=== PATIENT | female | born 1980 | race Two or more races ===

== ENCOUNTER → 2021-02-07 16:14 | Outpatient (BNVA) | payer MEDICARE, MEDICAID, SELFPAY | PROVIDERS: PCP Family Medicine; Visit Provider Student in an Organized Health Care Education/Training Program | DX: M79.7 Fibromyalgia (principal); M47.816 Spondylosis without myelopathy or radiculopathy, lumbar region | CPT/HCPCS: 99212 ==

== ENCOUNTER 2021-05-08 09:12 | Outpatient (REF) | payer MEDICARE, MEDICAID, SELFPAY ==
--- NOTE | ~2021-05-08 | MR_ITS ---
EXAMINATION: MR LUMBAR SPINE WITHOUT CONTRAST CLINICAL INFORMATION: Lower back pain with left leg numbness, pain, and weakness. COMPARISON: Multiple priors, most recent lumbar spine radiographs dated 08/05/2018. TECHNIQUE: MRI of the lumbar spine was obtained using routine sequences without contrast. FINDINGS: VERTEBRAL BODIES AND PARASPINAL STRUCTURES: Normal vertebral body alignment. The lumbar lordosis is maintained. No acute fracture or subluxation. No loss of vertebral body height. Loss of intervertebral disc height with disc desiccation at L3-L4 and L4-L5. No abnormal marrow signal to suggest acute osseous abnormality. The visualized paraspinal soft tissues are unremarkable. CONUS MEDULLARIS AND CAUDA EQUINA: Normal, terminating at the level of the T12-L1 intervertebral disc. SPINAL LEVELS: T12-L1: Tiny right posterior central disc protrusion. No significant central canal or neural foraminal stenosis. L1-L2: No significant disc bulge. No central canal or neural foraminal stenosis. L2-L3: No significant disc bulge. No central canal or neural foraminal stenosis. L3-L4: Broad-based disc bulge with minimal posterior annular fissuring. Shallow superimposed right extraforaminal disc protrusion which abuts the exiting right L3 nerve root. Bilateral facet arthropathy and thickening of the ligamentum flavum with moderate right and mild left neural foraminal stenosis. L4-L5: Broad-based disc bulge with a superimposed right extraforaminal disc protrusion which abuts the exiting right L4 nerve root. Bilateral facet arthropathy and thickening of the ligamentum flavum with moderate right and mild left neural foraminal stenosis. L5-S1: Minimal broad-based disc bulge. Bilateral facet arthropathy with mild bilateral neural foraminal stenosis. MR/MR lumbar spine wo con IMPRESSION: 1. Degenerative disc disease at L3-L4 with a broad-based disc bulge and minimal posterior annular fissuring as well as a shallow superimposed right extraforaminal disc protrusion which abuts the exiting right L3 nerve root. Bilateral facet arthropathy and thickening of the ligamentum flavum with moderate right and mild left neural foraminal stenosis. 2. Degenerative disc disease at L4-L5 with a broad-based disc bulge and superimposed right extraforaminal disc protrusion which abuts the exiting right L4 nerve root. Bilateral facet arthropathy and thickening of the ligamentum flavum with moderate right and mild left neural foraminal stenosis. 3. Bilateral facet arthropathy at L5-S1 with mild bilateral neural foraminal stenosis.
== END 2021-05-08 09:13 | disposition home or self-care (01) ==
LOC: HO.MRI 09:12
PROVIDERS: PCP Family Medicine; Visit Provider Psychiatry & Neurology Neurology
DX: M54.5 Low back pain (principal); M54.10 Radiculopathy, site unspecified
CPT/HCPCS: 72148

== ENCOUNTER 2021-07-26 08:55 | Outpatient (REF) | payer MEDICARE, MEDICAID, SELFPAY ==
--- NOTE | ~2021-07-26 | MM_ITS ---
EXAMINATION: MM SCREENING DIGITAL BREAST TOMOSYNTHESIS, BILATERAL CLINICAL INFORMATION: Screening. Asymptomatic. The lifetime risk of breast cancer based on the Tyrer-Cuzick Model is 17%. COMPARISON: Mammography: 10/22/2019, 09/15/2018 TECHNIQUE: Digital breast tomosynthesis is performed in both the craniocaudal and mediolateral oblique views along with computer-aided detection (CAD). Synthesized 2D images are generated from the tomosynthesis. FINDINGS: The breasts are heterogeneously dense, which may obscure small masses (ACR BI-RADS breast composition Category c). There are no significant masses, abnormal calcifications, or other abnormalities. Parenchymal pattern is similar to prior exams. No significant changes. MM/MM tomosynthesis screening BI IMPRESSION: No mammographic evidence of malignancy. ASSESSMENT: BI-RADS 1: Negative RECOMMENDATION: Routine annual mammography screening. This patient's information was entered into a reminder system with a target due date for their next mammogram.
== END 2021-07-26 08:56 | disposition home or self-care (01) ==
LOC: HO.MAMMO 08:55
PROVIDERS: PCP Family Medicine; Visit Provider Family Medicine
DX: Z12.31 Encounter for screening mammogram for malignant neoplasm of breast (principal)
CPT/HCPCS: 77063; 77067

== ENCOUNTER → 2022-01-29 08:53 | Outpatient (BNVA) | payer MEDICARE, MEDICAID, SELFPAY | PROVIDERS: PCP Family Medicine; Visit Provider Nurse Practitioner Family | DX: M79.7 Fibromyalgia (principal); M47.816 Spondylosis without myelopathy or radiculopathy, lumbar region | CPT/HCPCS: 99212 ==

== ENCOUNTER 2022-05-23 16:30 | Outpatient (REF) | payer MEDICARE, MEDICAID, SELFPAY ==
[2022-05-23 18:28] LABS: HCG Quantitative 4 mIU/mL
== END 2022-05-23 16:31 | disposition home or self-care (01) ==
LOC: HO.LAB 16:30
PROVIDERS: PCP Family Medicine; Visit Provider Advanced Practice Midwife
DX: Z34.90 Encounter for supervision of normal pregnancy, unspecified, unspecified trimester (principal)
CPT/HCPCS: 36415; 84702

== ENCOUNTER 2022-05-27 09:19 | Outpatient (REF) | payer MEDICARE, MEDICAID, SELFPAY ==
[2022-05-27 10:37] LABS: HCG Quantitative 5 mIU/mL
== END 2022-05-27 09:20 | disposition home or self-care (01) ==
LOC: HO.LAB 09:19
PROVIDERS: PCP Family Medicine; Visit Provider Advanced Practice Midwife
DX: O09.529 Supervision of elderly multigravida, unspecified trimester (principal)
CPT/HCPCS: 36415; 84702

== ENCOUNTER 2022-06-24 15:35 | Outpatient (REF) | payer MEDICARE, MEDICAID, SELFPAY ==
[2022-06-24 18:05] LABS: HCG Quantitative 4 mIU/mL
== END 2022-06-24 15:36 | disposition home or self-care (01) ==
LOC: HO.LAB 15:35
PROVIDERS: PCP Family Medicine; Visit Provider Advanced Practice Midwife
DX: O02.81 Inappropriate change in quantitative human chorionic gonadotropin (hCG) in early pregnancy (principal)
CPT/HCPCS: 36415; 84702

== ENCOUNTER 2022-06-29 22:17 | Emergency (ER) | payer MEDICARE, MEDICAID, SELFPAY ==
[2022-06-29 22:36] VITALS: BP 121/70; PULSE 58; RESP 18; TEMP 36.6; O2SAT 99; BMI 23.3
[2022-06-29 23:09] LABS: Basophils Percent Auto 0.4 % (0-2); Eosinophils Absolute Auto 0.1 X10*3/uL (0.0-0.4); Eosinophils Percent Auto 2.5 % (0-4); Hematocrit 35.3 % (37.0-47.0); Imm Gran Abs Auto 0.01 X10*3/uL (0.00-0.03); Imm Gran Pct Auto 0.2 % (0.0-0.4); Lymphocytes Absolute Auto 3.4 X10*3/uL (1.2-4.9); Lymphocytes Percent Auto 59.1 % (20-40); MANUAL DIFF FLAG NO; Mean Corpuscular Hemoglobin 31.2 pg (27.0-33.0); Mean Corpuscular Volume 91.7 fL (80.0-98.0); Mean Platelet Volume 9.2 fL (9.4-12.3); Monocytes Absolute Auto 0.6 X10*3/uL (0.1-1.2); Monocytes Percent Auto 9.7 % (2-11); Neutrophils Absolute Auto 1.6 x10*3/uL (2.0-8.3); Neutrophils Percent Auto 28.1 % (45-73); Platelet Count 242 X10*3/uL (160-400); Red Blood Count 3.85 X10*6/uL (4.20-5.50); Red Cell Distribution Width 12.4 % (11.0-16.0); White Blood Count 5.7 X10*3/uL (4.8-10.8)
[2022-06-29 23:36] LABS: Alanine Aminotransferase 18 U/L (0-31); Albumin Level 4.2 g/dL (3.5-5.0); Alkaline Phosphatase 99 U/L (39-117); Anion Gap 15 (12-20); Aspartate Amino Transferase 20 U/L (5-31); Bilirubin Total 0.2 mg/dL (0.0-1.0); Blood Urea Nitrogen 14 mg/dL (9-16); Calcium 9.1 mg/dL (8.4-10.2); Carbon Dioxide 25 mmol/L (22-29); Chloride 104 mmol/L (96-108); Creatinine Clr Calc Pharmacy 100.4; Estimated Glomerular Filt Rate > 60; Glucose Random 95 mg/dL (60-115); Sodium 140 mmol/L (135-145); Total Protein 7.1 g/dL (6.5-8.0)
[2022-06-30 00:02] LABS: HCG Quantitative 4 mIU/mL
--- NOTE | 2022-06-30 01:29 | ED.GENADULT ---
HPI - General Adult General Chief complaint: Abdominal Pain Stated complaint: unsure how far along, pain Time Seen by Provider: 06/30/22 01:02 Source: patient Mode of arrival: ambulatory Limitations: no limitations History of Present Illness HPI narrative: Patient comes to the emergency room asking how far along she is in this 6 . Patient is a (this would be her 6th ). Patient states that for approximately 4 months, she has been having positive tests, but she has not been told how far along she is. Patient denies abdominal pain, no vaginal bleeding. Related Data Home Medications Medication Instructions Recorded Confirmed mirtazapine 30 mg tablet 30 mg PO DAILY 02/07/21 02/07/21 acetaminophen 300 mg-codeine 30 mg 1 tab PO BEDTIME PRN 01/29/22 tablet clonazepam 2 mg tablet mg PO 01/29/22 ibuprofen 800 mg tablet 800 mg PO TID PRN 01/29/22 01/29/22 mirtazapine 45 mg tablet 45 mg PO BEDTIME 01/29/22 tizanidine 4 mg tablet 4 mg PO BID 01/29/22 Previous Rx's Medication Instructions Recorded acetaminophen 650 mg 650 mg PO Q8H PRN pain #90 tabs 02/14/21 tablet,extended release (Tylenol Arthritis Pain) Allergies Allergy/AdvReac Type Severity Reaction Status Date / Time baclofen Allergy Mild Rash Verified 06/29/22 22:36 barium sulfate [Volumen] Allergy Unknown Rash Verified 06/29/22 22:36 cyclobenzaprine Allergy Unknown dizzy,vomiting Verified 06/29/22 22:36 [From FLEXERIL] rash diazepam [Valium] Allergy Unknown Rash Verified 06/29/22 22:36 Flexeril Allergy Unknown rash, Verified 06/29/22 22:36 nausea and vomiting lorazepam [Ativan] Allergy Unknown Rash Verified 06/29/22 22:36 naproxen Allergy Unknown Rash Verified 06/29/22 22:36 tramadol [TRAMADOL] Allergy Unknown dizzy rash Verified 06/29/22 22:36 vomiting, vomiting, nausea and vomiting Review of Systems Review of Systems: Constitutional : No Weight loss, No Fever, No Chills, No Night Sweats, No Fatigue, No Malaise ENT/Mouth : No Hearing loss, No Ear Pain, No Nasal Congestion, No Sinus Pain, No Hoarseness, No sore throat, No Rhinorrhea, No Swallowing Difficulty Eyes: No Eye Pain, No Swelling, No Redness, No Foreign Body, No Discharge, No Vision Changes Cardiovascular : No Chest Pain, No SOB, No Dyspnea on Exertion, No Orthopnea, No Edema, No Palpitations Respiratory : No Cough, No Sputum, No Wheezing, No Smoke Exposure, No Dyspnea Gastrointestinal : No Nausea, No Vomiting, No Diarrhea, No Constipation, No abdominal Pain, No Hematochezia, No Melena Genitourinary : no irregular bleeding, No Dysuria, No Urinary Frequency, No Hematuria, No Urinary Incontinence, No Urgency, No Flank Pain, No Urinary Flow Changes, No Hesitancy Musculoskeletal : No joint pain, No Myalgias, No Joint Swelling Skin : No Skin Lesions, No rash Neuro : No Weakness, No Numbness, No Paresthesias, No Loss of Consciousness, No Dizziness, No Headache Psych : No Anxiety/Panic, No Depression, No SI/HI/AH/VH, No Social Issues, Heme/Lymph: No Bruising, No Bleeding,No Lymphadenopathy Endocrine : No Polyuria, No Polydipsia, No Temperature Intolerance [facility] Past Medical History Medical History Fibromyalgia Social History Social History Alcohol intake: never Cigarettes Per Day: 10 Years Smoked: 20 Substance Use Type: Marijuana Advance Directives: No Advance Directives Information Provided: Yes Physical Exam ED Vital Signs: Vital Signs - 24 hr 06/29/22 22:36 Temperature 97.9 F Pulse Rate 58 Respiratory Rate 18 Blood Pressure 121/70 Pulse Oximetry 99 Oxygen Delivery Method Room Air BMI result Body Mass Index 23.3 Const Other: Appearance: Alert. Oriented X3. No acute distress. Eyes: Pupils equal, round and reactive to light. ENT: Pharynx normal. Neck: Normal inspection. Neck supple. No lymph nodes noted. No crepitus CVS: Normal heart rate and rhythm. Pulses normal. Normal S1 and S2 Respiratory: No respiratory distress. Breath sounds normal. No Wheezing. No rales Abdomen: Soft and nontender. No rigidity. No distention. Bedside ultrasound does not show any signs of either an ectopic or uterine Skin: Skin warm and dry. Normal skin color. Normal skin turgor. Extremities: No lower extremity edema. No Lacerations. No Rash Neuro: Oriented X 3. No motor deficit. No sensory deficit. Moving all extremities. No slurred speech. CN 2 through 12 grossly intact Psych: calm, cooperative, normal affect Course Course Course Narrative: I discussed with the patient that her hCG has been chronically elevated for about a month, always at an hCG level of 4 or 5. There has been no progression. Patient states that even in [place] she was told that her HCG was 4, and it has been like this for 4 months. I discussed with the patient that in a , this number would be doubling every 2nd day. However, hers is remaining constant. I also discussed with the patient that in the bedside ultrasound there is no pole or signs of possible . Patient aware that this is not a formal ultrasound. Discussed with the patient that she needs to follow up with her primary care physician and Ob Gyne. Patient has an appointment in couple weeks with her OB Gyne in [place]. Ectopic is not suspected. Patient has no abdominal pain, no vaginal bleeding, as mentioned above, this level has been chronically elevated for at least 4 months. Medical Decision Making Lab Data Result diagrams: 06/29/22 22:53 06/29/22 22:53 Labs: Lab Results 06/29/22 06/29/22 Range/Units 22:53 22:53 WBC 5.7 (4.8-10.8) X10*3/uL RBC 3.85 L (4.20-5.50) X10*6/uL Hgb 12.0 (12.0-16.0) g/dl Hct 35.3 L (37.0-47.0) % MCV 91.7 (80.0-98.0) fL MCH 31.2 (27.0-33.0) pg MCHC 34.0 (31.0-35.0) g/dl RDW 12.4 (11.0-16.0) % Plt Count 242 (160-400) X10*3/uL MPV 9.2 L (9.4-12.3) fL Immature Gran % (Auto) 0.2 (0.0-0.4) % Neut % (Auto) 28.1 L (45-73) % Lymph % (Auto) 59.1 H (20-40) % Storey % (Auto) 9.7 (2-11) % Eos % (Auto) 2.5 (0-4) % Baso % (Auto) 0.4 (0-2) % Lymph # (Auto) 3.4 (1.2-4.9) X10*3/uL Storey # (Auto) 0.6 (0.1-1.2) X10*3/uL Eos # (Auto) 0.1 (0.0-0.4) X10*3/uL Baso # (Auto) 0.0 (0.0-0.2) X10*3/uL Abs Immat Gran (auto) 0.01 (0.00-0.03) X10*3/uL Absolute Neuts (auto) 1.6 L (2.0-8.3) x10*3/uL Absolute Nucleated RBC 0.000 (0.0-0.012) X10*3/uL Nucleated RBC % (auto) 0.0 (0.0-0.2) /100WBC Sodium 140 (135-145) mmol/L Potassium 4.0 (3.3-5.1) mmol/L Chloride 104 (96-108) mmol/L Carbon Dioxide 25 (22-29) mmol/L Anion Gap 15 (12-20) BUN 14 (9-16) mg/dL Creatinine 0.65 (0.5-1.4) mg/dL Estim Creat Clear Calc 100.4 Estimated GFR > 60 Random Glucose 95 (60-115) mg/dL Calcium 9.1 (8.4-10.2) mg/dL Total Bilirubin 0.2 (0.0-1.0) mg/dL AST 20 (5-31) U/L ALT 18 (0-31) U/L Alkaline Phosphatase 99 (39-117) U/L Total Protein 7.1 (6.5-8.0) g/dL Albumin 4.2 (3.5-5.0) g/dL Beta HCG, Quant 4 mIU/mL Discharge Plan Discharge Clinical Impression: Elevated serum hCG in female, not Patient Disposition: Home, Self-Care Additional Instructions: Please follow-up with your primary care physician tomorrow. If you have any worsening or new symptoms, please return to the emergency room or call 911 Prescriptions: No Action acetaminophen [Tylenol Arthritis Pain] 650 mg tablet extended release 650 mg PO Q8H PRN (Reason: pain) Qty: 90 5RF mirtazapine 30 mg tablet 30 mg PO DAILY acetaminophen-codeine 300-30 mg tablet 1 tab PO BEDTIME PRN clonazepam 2 mg tablet PO mirtazapine 45 mg tablet 45 mg PO BEDTIME tizanidine 4 mg tablet 4 mg PO BID ibuprofen 800 mg tablet 800 mg PO TID PRN Referrals: Gabriel Navarro MD [Physician] - 2 days (Chronically elevated HCG, non )
[2022-06-30 01:45] VITALS: BP 129/90; PULSE 55; RESP 16; TEMP 36.3; O2SAT 99
== END 2022-06-30 01:42 | disposition home or self-care (01) ==
PROVIDERS: Emergency Provider Emergency Medicine
DX: R10.2 Pelvic and perineal pain (principal); Z79.899 Other long term (current) drug therapy
CPT/HCPCS: 36415; 80053; 84702; 85025; 99283

== ENCOUNTER 2022-07-09 10:34 | Outpatient (REF) | payer MEDICARE, MEDICAID, SELFPAY ==
[2022-07-09 13:02] LABS: TSH reflex Free T4 0.91 uIU/mL (0.32-4.0)
[2022-07-09 13:20] LABS: HCG Quantitative 3 mIU/mL
[2022-07-09 15:14] LABS: CT PCR NOT DETECTED (Not Detect.); NG PCR NOT DETECTED (Not Detect.)
[2022-07-11 04:45] LABS: Follicle Stimulating Hormone 44.3 mIU/mL; Prolactin 9.7 ng/mL
[2022-07-13 10:16] LABS: HPV mRNA E6/E7 rflx Not Detected (Not Detected)
== END 2022-07-09 10:35 | disposition home or self-care (01) ==
LOC: HO.LAB 10:34
PROVIDERS: PCP Family Medicine; Visit Provider Obstetrics & Gynecology
DX: Z12.4 Encounter for screening for malignant neoplasm of cervix (principal); Z11.51 Encounter for screening for human papillomavirus (HPV); Z11.3 Encounter for screening for infections with a predominantly sexual mode of transmission; N91.2 Amenorrhea, unspecified; E34.9 Endocrine disorder, unspecified
CPT/HCPCS: 36415; 83001; 83002; 84146; 84443; 84702; 87491; 87591; 87624; 88142; 99202

== ENCOUNTER 2022-07-17 13:16 | Outpatient (REF) | payer MEDICARE, MEDICAID, SELFPAY ==
--- NOTE | ~2022-07-17 | US_ITS ---
EXAMINATION: US PELVIS CLINICAL INFORMATION: Amenorrhea. Chronically increased hCG. COMPARISON: None TECHNIQUE: Ultrasound of the pelvis is performed using both transabdominal and transvaginal transducers along with Doppler. Transvaginal imaging is performed due to inadequate visualization transabdominally. FINDINGS: Uterus: The uterus is anteverted and measures 9.9 x 4 x 5.9 cm. The double wall endometrial thickness is 0.3 mm. The uterus is smooth in contour and has normal myometrial echogenicity. No visible fibroid. Adnexa: Both ovaries are visualized. There is normal color flow to the adnexa. There is no ovarian torsion. There is no pelvic ascites or fluid collection. Right ovary measures 2.3 x 1.7 x 1.8 cm. No adnexal mass. Small follicles. Left ovary measures 3 x 1.6 x 2.1 cm. No adnexal mass. Follicles noted. US/US pelvic and transvaginal IMPRESSION: No suspicious finding of the pelvis. No adnexal mass. Unremarkable appearance of the uterus.
== END 2022-07-17 13:17 | disposition home or self-care (01) ==
LOC: HO.US 13:16
PROVIDERS: PCP Family Medicine; Visit Provider Obstetrics & Gynecology
DX: N91.2 Amenorrhea, unspecified (principal); E34.9 Endocrine disorder, unspecified
CPT/HCPCS: 76830; 76856

== ENCOUNTER → 2022-07-23 08:59 | Outpatient (BNVA) | payer MEDICARE, MEDICAID, SELFPAY | PROVIDERS: PCP Family Medicine; Visit Provider Obstetrics & Gynecology | DX: N91.2 Amenorrhea, unspecified (principal); R11.0 Nausea; R14.0 Abdominal distension (gaseous) | CPT/HCPCS: 99212 ==

== ENCOUNTER 2022-07-30 09:26 | Outpatient (REF) | payer MEDICARE, MEDICAID, SELFPAY ==
--- NOTE | ~2022-07-30 | MM_ITS ---
EXAMINATION: MM SCREENING DIGITAL BREAST TOMOSYNTHESIS, BILATERAL CLINICAL INFORMATION: Screening. Asymptomatic. The lifetime risk of breast cancer based on the Tyrer-Cuzick Model is 16%. COMPARISON: Mammography: 07/26/2021 and studies dating back to 11/20/2007. TECHNIQUE: Digital breast tomosynthesis is performed in both the craniocaudal and mediolateral oblique views along with computer-aided detection (CAD). Synthesized 2D images are generated from the tomosynthesis. FINDINGS: The breasts are extremely dense, which lowers the sensitivity of mammography (ACR BI-RADS breast composition Category d). There is a stable parenchymal pattern of the left breast without new abnormal dominant mass or suspicious grouping of microcalcifications. About the deep medial aspect of the right breast approximately 7 cm from nipple, there is a grouping of calcifications with questioned density for which spot medication views are recommended. About the axilla, there is an irregular region of ill-defined density and spurs fat which spot compression view is recommended. MM/MM tomosynthesis screening BI IMPRESSION: Right breast calcifications for further evaluation as described. ASSESSMENT: BI-RADS 0: Incomplete - Need Additional Imaging Evaluation RECOMMENDATION: 1. Additional views of the right breast. 2. Targeted ultrasound if warranted after review of the additional views. 3. Radiology department staff will contact the patient for additional imaging. This patient's information was entered into a reminder system with a target due date for their next mammogram.
== END 2022-07-30 09:27 | disposition home or self-care (01) ==
LOC: HO.MAMMO 09:26
PROVIDERS: PCP Family Medicine; Visit Provider Family Medicine
DX: Z12.31 Encounter for screening mammogram for malignant neoplasm of breast (principal)
CPT/HCPCS: 77063; 77067

== ENCOUNTER 2022-08-20 09:00 | Outpatient (REF) | payer MEDICARE, MEDICAID, SELFPAY ==
--- NOTE | ~2022-08-20 | MM_ITS ---
EXAMINATION: MM DIAGNOSTIC DIGITAL BREAST TOMOSYNTHESIS, RIGHT CLINICAL INFORMATION: Recall from screening for question of punctate calcifications posterior inner right breast and questionable architectural changes right axilla. COMPARISON: Mammography: 07/30/2022, 07/26/2021 TECHNIQUE: Digital breast tomosynthesis is performed. 2D images are generated from the tomosynthesis. The following views are obtained: Magnification CC x2, magnification LM, spot MLO. FINDINGS: The breasts are heterogeneously dense, which may obscure small masses (ACR BI-RADS breast composition Category c). There are no grouped calcifications posterior medial right breast. The punctate densities were only demonstrated on the synthesized CC view with no finding on tomographic sections nor on the MLO view. This suggests digital processing artifact pseudo calcifications on prior study. The additional view right axilla shows no architectural abnormality or mass or developing density. Results are discussed with the patient at time of visit, using an saw straightener. MM/MM tomosynthesis added views R IMPRESSION: No mammographic evidence of malignancy. ASSESSMENT: BI-RADS 1: Negative RECOMMENDATION: Routine annual mammography screening. This patient's information was entered into a reminder system with a target due date for their next mammogram.
== END 2022-08-20 09:01 | disposition home or self-care (01) ==
LOC: HO.MAMMO 09:00
PROVIDERS: PCP Family Medicine; Visit Provider Obstetrics & Gynecology
DX: R92.1 Mammographic calcification found on diagnostic imaging of breast (principal)
CPT/HCPCS: 77061; 77065

== ENCOUNTER 2022-09-27 11:22 | Outpatient (REF) | payer MEDICARE, MEDICAID, SELFPAY ==
[2022-09-27 12:20] LABS: Amylase 44 U/L (28-100); Lipase 17 U/L (8-78)
[2022-09-27 12:44] LABS: Carcinoembryonic Antigen < 1.73 ng/mL
[2022-09-30 09:32] LABS: HCG Tumor Marker 6 mIU/mL
== END 2022-09-27 11:23 | disposition home or self-care (01) ==
LOC: HO.LAB 11:22
PROVIDERS: PCP Family Medicine; Visit Provider Nurse Practitioner
DX: E34.9 Endocrine disorder, unspecified (principal); R11.0 Nausea; R14.0 Abdominal distension (gaseous)
CPT/HCPCS: 36415; 82150; 82378; 83690; 84702; 99202; 99212

== ENCOUNTER 2022-10-04 08:51 | Outpatient (REF) | payer MEDICARE, MEDICAID, SELFPAY ==
--- NOTE | ~2022-10-04 | CT_ITS ---
EXAMINATION: CT ABDOMEN AND PELVIS WITH CONTRAST CLINICAL INFORMATION: Endocrine disorder COMPARISON: None TECHNIQUE: Multidetector volumetric images were obtained from the superior aspect of the liver through the pubic symphysis following administration 85 mL of Omnipaque 350 intravenous contrast. Sagittal and coronal reformatted images were obtained on the technologist's workstation. Oral contrast: Yes This CT examination was performed using dose optimization techniques as appropriate, variously including the following: *Automated exposure control *Adjustment of mA and/or kV according to patient size (this includes techniques or standardized protocols for targeted exams where dose is matched to indication/reason for exam; i.e. extremities or head) *Use of iterative reconstruction technique DLP: 298 mGy-cm FINDINGS: LUNG BASES: The visualized lung bases are unremarkable. LIVER, GALLBLADDER, AND BILIARY TREE: The liver is normal in size, shape, and attenuation. No focal hepatic lesion or biliary ductal dilatation is present. The gallbladder is unremarkable with no evidence of radiopaque gallstones, gallbladder wall thickening, or obvious pericholecystic inflammatory changes. PANCREAS: Unremarkable. SPLEEN: Unremarkable. ADRENAL GLANDS: Unremarkable. KIDNEYS AND URETERS: The kidneys are normal in size, shape, and attenuation. No hydronephrosis, hydroureter, or calculi seen. No perinephric stranding. BLADDER: Not optimally distended. It is difficult to exclude bladder wall thickening. GASTROINTESTINAL TRACT: The small and large bowel are unremarkable. The appendix is unremarkable. ABDOMINAL WALL: No significant hernia is appreciated. LYMPH NODES: Normal. VASCULAR: Unremarkable. PELVIC VISCERA: Prominent left pelvic vessels. Appearance is questionable for pelvic congestion. Uterus and adnexa are otherwise unremarkable. OSSEOUS STRUCTURES: Unremarkable. CT/CT abdomen pelvis w IV con IMPRESSION: Normal-appearing adrenal glands. No adrenal or retroperitoneal mass is seen. Bladder not optimally distended. Question bladder wall thickening. Fleischner guidelines were followed.
== END 2022-10-04 08:52 | disposition home or self-care (01) ==
LOC: HO.CT 08:51
PROVIDERS: PCP Family Medicine; Visit Provider Nurse Practitioner
DX: E34.9 Endocrine disorder, unspecified (principal)
CPT/HCPCS: 74177

== ENCOUNTER 2023-03-20 10:36 | Outpatient (REF) | payer MEDICARE, MEDICAID, SELFPAY ==
--- NOTE | ~2023-03-20 | US_ITS ---
EXAMINATION: US PELVIS CLINICAL INFORMATION: Pelvic and perineal pain; the last menstrual period is uncertain. COMPARISON: None available. TECHNIQUE: Ultrasound of the pelvis is performed using both transabdominal and transvaginal transducers along with Doppler. Transvaginal imaging is performed due to inadequate visualization transabdominally. FINDINGS: Uterus: The uterus is anteverted and anteflexed. The uterus measures 6.7 x 3.1 x 5.2 cm. Nabothian cysts are seen within the cervix. The double wall endometrial thickness is 2 mm. The uterus is smooth in contour and has normal myometrial echogenicity. No visible fibroid. Adnexa: The right ovary measures 1.9 x 2.0 x 1.8 cm, volume 3.6 mL. A 1.2 cm in maximal diameter dominant follicle is noted. This requires no imaging follow-up. The left ovary is nonvisualized. There is normal color flow to the adnexa. There is no right ovarian torsion. There is no pelvic ascites or fluid collection. There is increased left adnexal vasculature. US/US pelvic and transvaginal IMPRESSION: 1. Nabothian cysts are seen within the cervix. 2. The left ovary is nonvisualized. 3. A 1.2 cm dominant, simple right ovarian follicle requires no imaging follow-up. 4. There is prominent left adnexal vasculature, raising the possibility of pelvic congestion.
== END 2023-03-20 10:37 | disposition home or self-care (01) ==
LOC: HO.US 10:36
PROVIDERS: PCP Family Medicine; Visit Provider Family Medicine
DX: R10.2 Pelvic and perineal pain (principal)
CPT/HCPCS: 76830; 76856

== ENCOUNTER 2023-07-18 09:23 | Outpatient (AMB) | payer MEDICARE, MEDICAID, SELFPAY ==
--- NOTE | 2023-07-18 09:24 | A.OFFVIS_ITS ---
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 Name: Segun [id number] Information Interpreted: clinical only Accompanied by: Self / Same As Patient Allergies baclofen Allergy (Mild, Verified 07/18/23 09:25) Rash barium sulfate [Volumen] Allergy (Unknown, Verified 07/18/23 09:25) Rash cyclobenzaprine [From FLEXERIL] Allergy (Unknown, Verified 07/18/23 09:25) dizzy,vomiting rash diazepam [Valium] Allergy (Unknown, Verified 07/18/23 09:25) Rash Flexeril Allergy (Unknown, Verified 07/18/23 09:25) rash, nausea and vomiting lorazepam [Ativan] Allergy (Unknown, Verified 07/18/23 09:25) Rash naproxen Allergy (Unknown, Verified 07/18/23 09:25) Rash tramadol [TRAMADOL] Allergy (Unknown, Verified 07/18/23 09:25) dizzy rash vomiting, vomiting, nausea and vomiting Medication List - Last Reconciled 07/18/23 by Francy Hyman MD acetaminophen-codeine 300-30 mg 1 tab PO DAILY PRN cholecalciferol (vitamin D3) (Vitamin D3) 25 mcg PO DAILY clonazepam mg PO ibuprofen 800 mg PO TID mirtazapine 45 mg PO BEDTIME PNV cmb#95-ferrous fumarate-FA 28 mg iron- 800 mcg () 1 tab PO DAILY tizanidine 4 mg PO TID HPI HPI Comments History of Present Illness Details This is a 42-year-old female with fibromyalgia who presents urgently for acute onset of low back pain. Patient stated that she started having lower mid back pain yesterday night. She denies any traumatic event. Did not lift any heavy objects. She stated that she had similar pain sometime in the pandemic that lasted 3 days treated with medication. She stated that she was evaluated by neurologist and was told she has a herniated disc. She did not receive any specific treatment for that. Continues on mirtazapine daily and takes tizanidine 3 times a day pain PFSH Medical History Compression of brain Fibromyalgia Surgical History Hx of section Family History Mother Breast cancer Social History Alcohol intake: never Cigarettes Per Day: 10 Years Smoked: 20 Substance Use Type: Marijuana Female Reproductive History Menstrual Age of Menarche: 10 Review of Systems Musc Reports back pain Physical Exam Vital Signs: Last Vital Signs Temp 97.7 F 07/18/23 09:25 Pulse 69 07/18/23 09:25 BP 140/82 H 07/18/23 09:25 Pulse Ox 99 07/18/23 09:25 Oxygen Delivery Method Room Air 07/18/23 09:25 BMI result Body Mass Index 22.3 Const General: cooperative and acute distress moderate Nutritional Appearance: average body habitus Orientation/consciousness: patient oriented x3 Limitations: no limitations HEENT Head: Yes normocephalic and Yes atraumatic Mouth: moist mucous membranes Resp Effort & Inspection: normal respiratory effort and able to speak in complete sentences Neuro General: patient oriented x3 Extrem Other: Lower mid back pain in the lumbar area as well as paraspinal muscle tenderness Bilateral lower back pain with straight leg raising Assessment & Plan Assessment & Plan (1) Lumbar degenerative disc disease: Code(s): M51.36 - Other intervertebral disc degeneration, lumbar region Plan: 42-year-old female with past medical history of fibromyalgia presents acutely for evaluation of abrupt onset of low back pain. Stated that she had similar pain over the last 2 years, it lasted for 3 days, was treated with medications. She was evaluated by neurologist and was told she has a herniated disc and she does not recall any specific treatment for it. Will prescribe a Medrol Dosepak. Advised patient to try using Salonpas patches. Check thoracic and L-spine x-ray Referred patient to pain management for further evaluation (2) Fibromyalgia: Code(s): M79.7 - Fibromyalgia Plan: Patient is on mirtazapine and tizanidine. Prescribed by other providers. She can continue the same. Plan I spent 26 minutes reviewing patient's chart, evaluating patient, ordering diagnostic workup, counseling patient and documenting in the chart Orders: Orders XR lumbar spine 4V min Today M51.36 - Other intervertebral disc degeneration, lumbar region XR thoracic spine 3V Today M51.36 - Other intervertebral disc degeneration, lumbar region Referrals Pain Management Referral M51.36 - Other intervertebral disc degeneration, lumbar region Medications: New methylprednisolone (Medrol (Arsenio)) PO PER PKG DIR 21 ea 0RF Coding Level of Care Code Est Pt Level 4 (04047) Diagnoses Lumbar degenerative disc disease M51.36 Fibromyalgia M79.7
[2023-07-18 09:25] VITALS: BP 140/82; PULSE 69; TEMP 36.5; O2SAT 99; BMI 22.3
== END 2023-07-18 09:49 | disposition home or self-care (01) ==
LOC: HO.RHE 09:23
PROVIDERS: PCP Family Medicine; Visit Provider Student in an Organized Health Care Education/Training Program
DX: M51.36 Other intervertebral disc degeneration, lumbar region (principal); M79.7 Fibromyalgia
CPT/HCPCS: 99214

== ENCOUNTER → 2023-07-18 09:23 | Outpatient (BNVA) | payer MEDICARE, MEDICAID, SELFPAY | PROVIDERS: PCP Family Medicine; Visit Provider Student in an Organized Health Care Education/Training Program | DX: M51.36 Other intervertebral disc degeneration, lumbar region (principal); M79.7 Fibromyalgia | CPT/HCPCS: 99212 ==

== ENCOUNTER 2023-07-29 11:55 | Outpatient (REF) | payer MEDICARE, MEDICAID, SELFPAY ==
--- NOTE | ~2023-07-29 | MR_ITS ---
EXAMINATION: MR BRAIN WITHOUT CONTRAST CLINICAL INFORMATION: Chiari malformation COMPARISON: MRI brain 05/23/2016 TECHNIQUE: MRI of the brain was obtained using routine sequences without contrast. FINDINGS: Stable appearance following decompressive suboccipital craniectomy for decompression of Chiari I malformation. Stable low-lying cerebellar tonsils terminating 1.4 cm below the postsurgical foramen magnum with redemonstrated pointed morphology, particularly on the right. Partial effacement of the cervicomedullary CSF. No syrinx within the imaged cervical cord. No acute infarct. No acute intracranial hemorrhage or extra-axial fluid collection. The ventricles and sulci are normal in size and configuration without significant volume loss or hydrocephalus. No mass lesion. Normal intracranial arterial and dural venous sinus flow voids. Redemonstrated partially empty sella for age. The orbits are grossly unremarkable. The paranasal sinuses and mastoids are well aerated. MR/MR head/brain wo con IMPRESSION: Stable appearance following decompressive suboccipital craniectomy for decompression of Chiari I malformation. Stable low-lying cerebellar tonsils terminating 1.4 cm below the postsurgical foramen magnum. Partial effacement of the cervicomedullary CSF. No syrinx within the imaged cervical cord. No new intracranial process.
--- NOTE | ~2023-07-29 | XR_ITS ---
EXAMINATION: XR LUMBOSACRAL SPINE WITH OBLIQUES CLINICAL INFORMATION: Intervertebral disc degeneration. COMPARISON: None available. TECHNIQUE: AP, both oblique, and lateral views of the lumbar spine. Lateral view of the lumbosacral junction. FINDINGS: Moderate disc space narrowing at L3-L4 and L4-L5. Very mild lumbar levocurvature. The vertebral bodies and posterior elements appear unremarkable. No evidence of spondylolisthesis. The paraspinal soft tissues appear unremarkable. XR/XR lumbar spine 4V min IMPRESSION: Moderate disc space narrowing at L3-L4 and L4-L5. Very mild lumbar levocurvature.
--- NOTE | ~2023-07-29 | XR_ITS ---
EXAMINATION: XR THORACIC SPINE CLINICAL INFORMATION: Intervertebral disc degeneration. COMPARISON: None available. TECHNIQUE: 3 views of the thoracic spine were obtained. FINDINGS: No fracture or bone destruction is appreciated, and the vertebral alignment appears unremarkable. No disc space narrowing is seen. The paraspinal soft tissues appear unremarkable. XR/XR thoracic spine 3V IMPRESSION: Unremarkable examination.
== END 2023-07-29 11:56 | disposition home or self-care (01) ==
LOC: HO.MRI 11:55
PROVIDERS: PCP Family Medicine; Visit Provider Psychiatry & Neurology Neurology
DX: M51.36 Other intervertebral disc degeneration, lumbar region (principal); Q07.00 Arnold-Chiari syndrome without spina bifida or hydrocephalus
CPT/HCPCS: 70551; 72072; 72110

== ENCOUNTER 2023-08-02 10:31 | Outpatient (REF) | payer MEDICARE, MEDICAID, SELFPAY | END 2023-08-02 10:32 | disposition home or self-care (01) | LOC: HO.MAMMO 10:31 | PROVIDERS: PCP Family Medicine; Visit Provider Family Medicine | DX: Z12.31 Encounter for screening mammogram for malignant neoplasm of breast (principal) | CPT/HCPCS: 77063; 77067 ==

== ENCOUNTER → 2023-08-02 10:45 | Outpatient (BNV) | payer MEDICARE, MEDICAID, SELFPAY | PROVIDERS: PCP Family Medicine; Visit Provider Radiology Diagnostic Radiology | DX: Z12.31 Encounter for screening mammogram for malignant neoplasm of breast (principal) | CPT/HCPCS: 77063; 77067 ==

== ENCOUNTER 2023-09-03 10:13 | Outpatient (AMB) | payer MEDICARE, MEDICAID, SELFPAY ==
--- NOTE | 2023-09-03 10:17 | MHC.OFFVIS ---
Intake Vital Signs 09/03/23 10:19 Height 5 ft 5 in Weight 135 lb BMI 22.5 BP 124/72 Blood Pressure Location Rt brachial Position Sitting Respiration 16 Pulse 70 Pulse Source Pulse Oximeter Pulse Oximetry (%) 100 Oxygen Delivery Method Room Air Intake Visit Reasons: Other Intervert. Disc Degen, Lumbar Region Intake Note: patient comes in for initial visit was referred by [facility] Rheumatology Allergies baclofen Allergy (Mild, Verified 09/03/23 10:18) Rash barium sulfate [Volumen] Allergy (Unknown, Verified 09/03/23 10:18) Rash cyclobenzaprine [From FLEXERIL] Allergy (Unknown, Verified 09/03/23 10:18) dizzy,vomiting rash diazepam [Valium] Allergy (Unknown, Verified 09/03/23 10:18) Rash Flexeril Allergy (Unknown, Verified 09/03/23 10:18) rash, nausea and vomiting lorazepam [Ativan] Allergy (Unknown, Verified 09/03/23 10:18) Rash naproxen Allergy (Unknown, Verified 09/03/23 10:18) Rash tramadol [TRAMADOL] Allergy (Unknown, Verified 09/03/23 10:18) dizzy rash vomiting, vomiting, nausea and vomiting HPI HPI Comments History of Present Illness Details Harriet very unfortunate 43 years old [place]an-speaking female who presents in my office with complains on severe widespread pain all over the body. She reports severe pain in bilateral neck bilateral upper shoulders bilateral lower back and bilateral hips she reports difficulty sitting laying down standing bending forward and bending backwards she reports her pain in terms of tissue damage is aching and numbing sensation. She reports her pain is constant without significant changes in intensity with level of pain 8-9 and sometimes 10 out of 10. She was diagnosed with fibromyalgia. She was referred for treatment with this office. Tried NSAIDs which does not help her pain she tried gabapentin which does not help her pain. She tried physical therapy and water I aerobic exercises without difficult pain improvement. She has sole caregiver of nearly morbidly obese mentally retarded child at home. She reports difficulty leads sleeping and insomnia. She denies any other past medical feet history but she reports numbness in bilateral feet and toes. She reported that in the past she had some image of the brain and she reported some sort of a shadow compressing her brain. She had also Chiari malformation and she had a surgery for Chiari malformation, she reported very difficult recovery for many months after the surgery. She adamantly refused to follow-up on the images of her brain. She is very muscular and thin. Request to perform some injections. [facility] Medical History Compression of brain Fibromyalgia Surgical History Hx of section Family History Mother Breast cancer Social History Alcohol intake: never Cigarettes Per Day: 10 Years Smoked: 20 Substance Use Type: Marijuana Female Reproductive History Menstrual Age of Menarche: 10 Review of Systems Const All systems reviewed & are unremarkable except as noted in HPI and below ENT Reports Normal hearing present Neuro Reports Normal hearing present, Denies Abnormal speech present, Denies confusion and Denies Sensory deficit (Neuro) Psych Denies confusion Physical Exam Vital Signs: Last Vital Signs Pulse 70 09/03/23 10:19 Resp 16 09/03/23 10:19 BP 124/72 09/03/23 10:19 Pulse Ox 100 09/03/23 10:19 Oxygen Delivery Method Room Air 09/03/23 10:19 BMI result Body Mass Index 22.5 Const General: no acute distress; No confusion Orientation/consciousness: patient oriented x3 and No confusion Eyes General: appearance normal, both eyes and all related structures Pupils: Equal, round and reactive pupils present EOM: EOMs intact bilaterally Neck Other: Very well-healed scar in the occipital area at the midline spreading into the most superior portion of the neck. Neck: No full ROM Chest Chest palpation & inspection: normal inspection of the chest Resp Effort & Inspection: normal respiratory effort, able to speak in complete sentences, normal respiratory pattern, no audible wheezes and no cough Cardio Jugular venous distension: no JVD GI Inspection: Yes normal to inspection Back/Spine/Pelvis Other: Able to stand on bilateral tiptoes and bilateral heels although reports severe pain with those maneuvers in fact any maneuvers I tried on this patient caused her tears in severe pain. Seemingly positive Rick test. Seemingly positive SLR test. Flexing forward and flexing backwards both aggravate her pain. Loading test aggravates her pain bilaterally. Reports Valsalva maneuver aggravates her pain. Lateral and medial hip rotation aggravates her pain at the hip area but not in the groin. Palpation of the bilateral shoulders, bilateral trapezius area, bilateral paravertebral area in the upper thoracic and lower lumbar spine as well as palpation of the bilateral hips result in severe pain aggravation. Neuro General: patient oriented x3, gait normal and No confusion Cranial nerves: Yes CN's II-XII intact bilaterally, Yes Equal, round and reactive pupils present, Yes Normal hearing present and Yes Ability to bilaterally elevate shoulders present Speech: No Abnormal speech present Gait exam (Neuro): Normal gait present Motor exam (neuro): 5/5 motor strength present throughout Sensory Exam: No Sensory deficit (Neuro) Extrem General: No pedal edema Psych Speech and movement: Normal speech and movement present Affect: normal affect Attitude: cooperative Thought process: Normal thought process present Thought content: Normal thought content present Insight: Good insight present (Psych) Judgement: Good judgement present (Psych) Assessment & Plan Assessment & Plan (1) Lumbar degenerative disc disease: Code(s): M51.36 - Other intervertebral disc degeneration, lumbar region (2) Lumbar spondylosis: Code(s): M47.816 - Spondylosis without myelopathy or radiculopathy, lumbar region (3) Fibromyalgia: Code(s): M79.7 - Fibromyalgia (4) Spondylosis of lumbar region without myelopathy or radiculopathy: Code(s): M47.816 - Spondylosis without myelopathy or radiculopathy, lumbar region Plan This patient was diagnosed with fibromyalgia. I think this is very correct diagnosis. I offered her gabapentin in escalation however she told me that she already tried that, she refused to try pregabalin/Lyrica. I told her that low impact aerobic exercise and physical therapy is the only approved way to treat fibromyalgia. Her answer was that she has her exercise while lifting her mentally retarded 18 years old child who is morbidly obese. I pointed out for her that this is not the exercise which will help her. She needs low impact aerobic exercise. I warned her that low impact aerobic exercises needed and initially it will aggravate her pain. It appears that she has stationary bicycle at home. I recommended her to try at least once a day 30 minute interval during the daytime to spin the pedals of that bicycle on ?top of her lungs ?. I will schedule her for the bilateral medial branch block L3-L4 does ramus L5 diagnostic to help her pain. She also reported that in the past she was treated by primary care physician with steroid taper and and that medication does gave her very profound pain relief. I recommended her to discuss chronic steroid therapy with her embosser operator at least possibly for pre determined interval of time to improve her function.. Transcranial magnetic stimulation can be tried for this patient. I will make a referral. I am not sure what insurance approval it will involve. Orders: Referrals Psychiatry Referral M79.7 - Fibromyalgia Patient Instructions: I here by testify that I spent 1 hour in conversation with this patient as well as planning her care, organizing her note and and evaluating her prior records. Coding Level of Care Code New Pt Level 5 (21315) Diagnoses Lumbar degenerative disc disease M51.36 Lumbar spondylosis M47.816 Fibromyalgia M79.7 Spondylosis of lumbar region without myelopathy or radiculopathy M47.816
[2023-09-03 10:19] VITALS: BP 124/72; PULSE 70; RESP 16; O2SAT 100; BMI 22.5
== END 2023-09-03 11:10 | disposition home or self-care (01) ==
PROVIDERS: PCP Family Medicine; Visit Provider Anesthesiology
DX: M51.36 Other intervertebral disc degeneration, lumbar region (principal); M47.816 Spondylosis without myelopathy or radiculopathy, lumbar region; M79.7 Fibromyalgia
CPT/HCPCS: 99205

== ENCOUNTER → 2023-09-03 10:13 | Outpatient (BNVA) | payer MEDICARE, MEDICAID, SELFPAY | PROVIDERS: PCP Family Medicine; Visit Provider Anesthesiology ==

== ENCOUNTER 2024-01-12 09:52 | Outpatient (AMB) | payer MEDICARE, MEDICAID, SELFPAY ==
--- NOTE | 2024-01-12 09:55 | MHC.OFFVIS ---
Intake Vital Signs 01/12/24 09:56 Height 5 ft 5 in Weight 136 lb 14.513 oz BMI 22.8 BP 102/64 Blood Pressure Location Rt brachial Position Sitting Pulse 84 Pulse Source Pulse Oximeter Temp 97 F Temp Source Skin Pulse Oximetry (%) 98 Oxygen Delivery Method Room Air Intake Visit Reasons: FMS Intake Note: Patient last seen 07/18/23 presents today for follow up and test results. c/o barry hand numbness, right hand is worse. c/o back pain, has had this in the past. Reports pain has worsened. Seeing Neurology for the hand numbness and back pain. Has appt w/PCP 01/15/24. Floorworker Required: No Accompanied by: Self / Same As Patient Allergies baclofen Allergy (Mild, Verified 01/12/24 09:55) Rash barium sulfate [Volumen] Allergy (Unknown, Verified 01/12/24 09:55) Rash cyclobenzaprine [From FLEXERIL] Allergy (Unknown, Verified 01/12/24 09:55) dizzy,vomiting rash diazepam [Valium] Allergy (Unknown, Verified 01/12/24 09:55) Rash Flexeril Allergy (Unknown, Verified 01/12/24 09:55) rash, nausea and vomiting lorazepam [Ativan] Allergy (Unknown, Verified 01/12/24 09:55) Rash naproxen Allergy (Unknown, Verified 01/12/24 09:55) Rash tramadol [TRAMADOL] Allergy (Unknown, Verified 01/12/24 09:55) dizzy rash vomiting, vomiting, nausea and vomiting Medication List - Last Reconciled 01/12/24 by Francy Hyman MD acetaminophen-codeine 300-30 mg 1 tab PO DAILY PRN cholecalciferol (vitamin D3) (Vitamin D3) 25 mcg PO DAILY clonazepam mg PO clonazepam (Klonopin) 2 mg PO BID ibuprofen 800 mg PO TID mirtazapine 45 mg PO BEDTIME PNV cmb#95-ferrous fumarate-FA 28 mg iron- 800 mcg () 1 tab PO DAILY tizanidine 4 mg PO TID HPI HPI Comments History of Present Illness Details This is a 43-year-old female with fibromyalgia who returns for follow-up. She was evaluated by Pain Management and a branch block was suggested, patient did not want to proceed with it as she had injections in the back in the past and they were not helpful. She stated that she was diagnosed with bilateral carpal tunnel and was prescribed wrist splints in the past but she is having more severe numbness recently and she will be following up soon with her neurologist Dr. Jones. She is on mirtazapine and tizanidine prescribed by other providers. She believes those are helping. She follows up regularly with a psychologist and a psychiatrist [facility] Medical History Compression of brain Fibromyalgia Surgical History Hx of section Family History Mother Breast cancer Social History Alcohol intake: never Cigarettes Per Day: 10 Years Smoked: 20 Substance Use Type: Marijuana Female Reproductive History Menstrual Age of Menarche: 10 Review of Systems Musc Reports back pain, Reports myalgias, Reports arthralgias and Reports numbness Neuro Reports numbness Physical Exam Vital Signs: Last Vital Signs Temp 97 F 01/12/24 09:56 Pulse 84 01/12/24 09:56 BP 102/64 01/12/24 09:56 Pulse Ox 98 01/12/24 09:56 Oxygen Delivery Method Room Air 01/12/24 09:56 BMI result Body Mass Index 22.8 Const General: cooperative, healthy appearing and comfortable Nutritional Appearance: average body habitus and well nourished Orientation/consciousness: patient oriented x3 Limitations: no limitations HEENT Head: Yes normocephalic and Yes atraumatic Mouth: moist mucous membranes Resp Effort & Inspection: normal respiratory effort and able to speak in complete sentences Auscultation: clear to auscultation bilaterally Skin General skin exam: no rashes or lesions noted Neuro General: patient oriented x3 Extrem Other: Few fibromyalgia tender points Assessment & Plan Assessment & Plan (1) Fibromyalgia: Code(s): M79.7 - Fibromyalgia Plan: 43-year-old female with fibromyalgia returns for follow-up. We reviewed management strategies for fibromyalgia such as light exercises such as exercise bike, aquatherapy, stretching. She follows up regularly with her psychologist and psychiatrist. She is on mirtazapine and tizanidine described by other providers. I explained to patient that she does not need to follow-up regularly with me. She can follow-up with her other providers (2) Lumbar degenerative disc disease: Code(s): M51.36 - Other intervertebral disc degeneration, lumbar region Plan: Was evaluated by Pain Management and a branch block was suggested, patient did not want to proceed with it (3) Carpal tunnel syndrome: Code(s): G56.00 - Carpal tunnel syndrome, unspecified upper limb Qualifiers: Laterality: bilateral Qualified Code(s): G56.03 - Carpal tunnel syndrome, bilateral upper limbs Plan: Stated that she follows up regularly with neurologist. I explained to patient that if her symptoms are worse, she might need in new EMG/NCV and a referral to a surgeon Plan I spent 26 minutes reviewing patient's chart, evaluating patient, counseling patient and documenting in the chart Coding Level of Care Code Est Pt Level 4 (10104) Diagnoses Fibromyalgia M79.7 Lumbar degenerative disc disease M51.36 Bilateral carpal tunnel syndrome G56.03 Laterality: bilateral
[2024-01-12 09:56] VITALS: BP 102/64; PULSE 84; TEMP 36.1; O2SAT 98; BMI 22.8
== END 2024-01-12 10:29 | disposition home or self-care (01) ==
PROVIDERS: PCP Family Medicine; Visit Provider Student in an Organized Health Care Education/Training Program
DX: M79.7 Fibromyalgia (principal); M51.36 Other intervertebral disc degeneration, lumbar region; G56.03 Carpal tunnel syndrome, bilateral upper limbs
CPT/HCPCS: 99214

== ENCOUNTER → 2024-01-12 09:52 | Outpatient (BNVA) | payer MEDICARE, MEDICAID, SELFPAY | PROVIDERS: PCP Family Medicine; Visit Provider Student in an Organized Health Care Education/Training Program | DX: M79.7 Fibromyalgia (principal); M51.36 Other intervertebral disc degeneration, lumbar region; G56.03 Carpal tunnel syndrome, bilateral upper limbs | CPT/HCPCS: 99212 ==

== ENCOUNTER 2024-01-16 08:38 | Outpatient (REF) | payer MEDICARE, MEDICAID, SELFPAY ==
[2024-01-16 12:11] LABS: Anion Gap 10 (12-20); Blood Urea Nitrogen 13 mg/dL (9-16); Calcium 9.3 mg/dL (8.4-10.2); Carbon Dioxide 29 mmol/L (22-29); Chloride 107 mmol/L (96-108); Cholesterol 161 mg/dL (<200); Estimated Glomerular Filt Rate > 60; Glucose Random 79 mg/dL (60-115); HDL Cholesterol 45 mg/dL (>40); LDL Cholesterol Calculated 106 mg/dL (<100); Potassium 3.7 mmol/L (3.3-5.1); Sodium 142 mmol/L (135-145); Triglycerides 53 mg/dL (<150)
[2024-01-16 12:13] LABS: TSH reflex Free T4 0.44 uIU/mL (0.32-4.0)
== END 2024-01-16 08:39 | disposition home or self-care (01) ==
LOC: HO.HHCL 08:38
PROVIDERS: Visit Provider Family Medicine
DX: E78.00 Pure hypercholesterolemia, unspecified (principal); R79.89 Other specified abnormal findings of blood chemistry; E05.90 Thyrotoxicosis, unspecified without thyrotoxic crisis or storm; N92.6 Irregular menstruation, unspecified
CPT/HCPCS: 36415; 80048; 80061; 84443

== ENCOUNTER 2024-08-28 08:40 | Outpatient (REF) | payer MEDICARE, MEDICAID, SELFPAY ==
--- NOTE | ~2024-08-28 | MM_ITS ---
EXAMINATION: MM SCREENING DIGITAL BREAST TOMOSYNTHESIS, BILATERAL CLINICAL INFORMATION: Screening. Asymptomatic. COMPARISON: Mammography: Comparison is made with available priors TECHNIQUE: Digital breast mammography with tomosynthesis is performed in both the craniocaudal and mediolateral oblique views along with computer-aided detection (CAD). FINDINGS: The breasts are heterogeneously dense, which may obscure small masses (ACR BI-RADS breast composition Category c). There are no significant masses, abnormal calcifications, or other abnormalities. MM/MM tomosynthesis screening BI IMPRESSION: No mammographic evidence of malignancy. ASSESSMENT: BI-RADS BI-RADS 1 - Negative RECOMMENDATION: Routine annual mammography screening. 1 year F/U This examination should not preclude the clinical evaluation of a suspicious palpable abnormality. This patient's information was entered into a reminder system with a target due date for their next mammogram. Electronically signed by: Kanika Cardoza DO 09/09/2024 10:01 PM ED[place]
== END 2024-08-28 08:41 | disposition home or self-care (01) ==
LOC: HO.MAMMO 08:40
PROVIDERS: Visit Provider Family Medicine
DX: Z12.31 Encounter for screening mammogram for malignant neoplasm of breast (principal)
CPT/HCPCS: 77063; 77067

== ENCOUNTER → 2024-08-28 10:30 | Outpatient (BNV) | payer MEDICARE, MEDICAID, SELFPAY | PROVIDERS: Visit Provider Internal Medicine | DX: Z12.31 Encounter for screening mammogram for malignant neoplasm of breast (principal) | CPT/HCPCS: 77063; 77067 ==

== ENCOUNTER 2025-02-17 10:29 | Outpatient (REF) | payer MEDICARE, MEDICAID, SELFPAY ==
--- NOTE | ~2025-02-17 | MR_ITS ---
EXAMINATION: MR LUMBAR SPINE WITHOUT CONTRAST CLINICAL INFORMATION: Lumbar disc herniation. COMPARISON: May 08, 2021. TECHNIQUE: MRI of the lumbar spine was obtained using routine sequences without contrast. FINDINGS: Last rib-bearing vertebra labeled T12. No bone marrow STIR signal abnormality. Disc desiccation and marginal osteophyte formation L3-4, L4-5 and L5-S1. The alignment is normal. The conus medullaris ends at inferior endplate of T12 with normal signal. T12-L1: No disc herniation. No neuroforamina stenosis. L1-2: No disc herniation. No neuroforamina stenosis. L2-3: No disc herniation. No neuroforamina stenosis. L3-4: Broad-based disc bulging. Facet joint and ligamentum flavum hypertrophy. Reduced AP diameter of the thecal sac and the neural foramina. No compression upon neural elements. L4-5: Broad-based disc bulging. Facet joint and ligamentum flavum hypertrophy. Reduced AP diameter of the thecal sac and the neural foramina likely encroaching the neural elements. L5-S1: Broad-based disc bulging. Facet joint hypertrophy. Reduced AP diameter of the thecal sac and the neural foramina likely encroaching the neural elements. No prevertebral compartment hematoma, mass or fluid collection. MR/MR lumbar spine wo con IMPRESSION: Spondylosis at L4-5 and L5-S1 encroaching the neural elements of the thecal sac and the exiting nerve roots. Electronically signed by: Evelio Awan MD 02/18/2025 10:57 AM EDT
--- OUTSIDE RECORDS SUMMARY | 2025-02-17 11:35 | XMS_ITS | Encounter Summary ---
Author Organization [employer] [facility] Address [address] [place] [address] [address] [place] [address] Care Team Providers Care Pest Control Supervisor Name Role Phone Anh Lujan MD Primary Care Provider [phone]- [phone] Marco Hyman MD Unavailable Jan Escalona MD Unavailable Encounter Details Date Type Department Care Team ([facility] Contact Info) Description 03/11/2023 Abstract [facility] [address] [place], [place] [phone] Anh Lujan MD [address] [place], [place] [phone] Social History Tobacco Use Types Packs/Day Years Used Date Smoking Tobacco: Every Day Cigarettes Depression Answer Date Recorded Patient Health Questionnaire-9 Score 0 02/21/2023 Depression Answer Date Recorded Patient Health Questionnaire-2 Score 0 02/21/2023 Comments Unknown Sex and Gender Information Value Date Recorded Sex Assigned at Female 09/16/2022 10:18 AM EDT Legal Sex Female 10:18 AM EDT Gender Identity Female 09/16/2022 10:18 AM EDT Sexual Orientation Choose not to disclose 2021 10:18 AM EDT COVID-19 Exposure Response Date Recorded In the last 10 days, have yo u been in contact with someone who was confirmed or suspected to have Coronavirus/COVID-19? No / Unsure 02/21/2023 9:24 AM EDT documented as of this encounter Plan of Treatment Upcoming Encounters Date Type Department Care Team (Late Contact Info) Description 02/21/2025 9:15 AM EDT Office Visit [facility] [address] [place] [address] Anh Lujan MD [address] [place] [address] documented as of this encounter Visit Diagnoses Not on filedocumented in this encounter Additional Health Concerns Assessment Noted Time PHQ-9 Depression Total Score: 0 02/22/20 23 9:38 AM EDT documented as of this encounter Care Teams Pest Control Supervisor Relationship Specialty Start Date End Date Anh Lujan MD [address] [place] [address] PCP - General Family Medicine 11/17/18 Marco Hyman MD [address] [place] [address] Rheumatology 11/15/24 Jan Escalona MD [address] [place] [address] Pain Medicine 11/15/24 Jorge L Jones MD [address] [place] [address] [address] [place] [address] Neurology 11/15/[address] [address] Psychiatry 11/15/24 Dr. Marino Nguyen MD [address] [id number] Gastroenterology 11/29/24 documented as of this encounter
--- OUTSIDE RECORDS SUMMARY | 2025-02-17 11:35 | XMS_ITS | Encounter Summary ---
Author Organization [employer] Address [address] [facility] [address] [place] [address] Care Team Providers Care Termination Clerk Name Role Phone Anh Lujan MD Primary Care Provider [phone]- [phone] Marco Hyman MD Unavailable aJn Escalona MD Unavailable Reason for Visit * Reason Comments Med Refill Encounter Details Date Type Department Care Team (Late st Contact Info) Description 06/03/2024 Refill [facility] [address] [place], [place] [phone] Taylor Prakash MD [address] [place], [place] [phone] Vitamin deficiency Social History Tobacco Use Types Packs/Day Years Used Date Smoking Tobacco: Every Day Cigarettes Depression Answer Date Recorded Patient Health Questionnaire-9 Score 0 02/21/2023 Housing Stability Answer Date Recorded What is your housing situation today? I have oriana sousa 09/03/[address] you li ve. Do you have problems with any of the following? None of the above 09/03/2023 Food Insecurity Answer Date Recorded Within the past 12 months, y ou worried that your food would run out before you got money to buy more: Never True 09/03/2023 Within the past 12 months,th e food you bought just didn't last and you didn't have enough money to get more: Never True Transportation Answer Date Recorded In the past 12 months, has l ack of transportation kept you from medical appts, meetings, work or from getting things needed for daily living? No 09/03/2023 Utilities Answer Date Recorded In the past 12 months, has t he electric, gas, oil or water company threatened to shut off services in your home? No 09/03/2023 Depression Answer Date Recorded Patient Health Questionnaire-2 Score 0 02/21/2023 Comments Unknown Sex and Gender Information Value Date Recorded Sex Assigned at Female 09/16/2022 10:18 AM EDT Legal Sex Female 10:18 AM EDT Gender Identity Female 09/16/2022 10:18 AM EDT Sexual Orientation Choose not to disclose 2021 10:18 AM EDT documented as of this encounter Plan of Treatment Upcoming Encounters Date Type Department Care Team (Late st Contact Info) Description 02/21/2025 9:15 AM EDT Office Visit [facility] [address] [place] [phone] Anh Lujan MD [address] [place] [phone] documented as of this encounter Visit Diagnoses Diagnosis Vitamin deficiency Unspecified vitamin deficiency documented in this encounter Additional Health Concerns Assessment Noted Time PHQ-9 Depression Total Score: 0 02/22/20 9:38 AM EDT documented as of this encounter Care Teams Termination Clerk Relationship Specialty Start Date End Date Anh Lujan MD [address] [place] [phone] PCP - General Family Medicine 11/17/18 Marco Hyman MD [address] [place] [address] Rheumatology 11/15/24 Jan Escalona MD [address] [place] [address] Pain Medicine 11/15/24 Jorge L Jones MD [address] [place] [address] Dr [address] [place] [address] Neurology 11/15/[address] [address] Psychiatry 11/15/24 Dr. Marino Nguyen MD [address] [place] [address] Gastroenterology 11/29/24 documented as of this encounter
--- OUTSIDE RECORDS SUMMARY | 2025-02-17 11:35 | XMS_ITS | Encounter Summary ---
Author Organization [employer] [facility] Address [address] [place] [address] [address] [place] [address] Care Team Providers Care Boiler Blower Name Role Phone Anh Lujan MD Primary Care Provider Marco Hyman MD Unavailable Jan Escalona MD Unavailable Encounter Details Date Type Department Care Team (Late st Contact Info) Description 01/14/2023 Abstract [facility] MEDICINE [address] [place] [address] [phone] Anh Lujan MD [address] [place] [address] [phone] Social History Tobacco Use Types Packs/Day Years Used Date Smoking Tobacco: Never Assessed Comments Unknown Sex and Gender Information Value [...] Description 02/21/2025 9:15 AM EDT Office Visit [facility] [address] [place] [address] [phone] Anh Lujan MD [address] [place] [address] [phone] documented as of this encounter Procedures Procedure Name Priority Date/Time Associated Diagnosis Comments MAMMOGRAPHY Routine 08/20/2022 PAP SMEAR Routine 08/28/2021 12:00 AM EDT documented in this encounter Results * Mammography (08/20/2022) HM Mammogram BIRADS 1 Anatomical Region Laterality Modality Other Historical Provider HEALTH MAINTENANCE Final Result * Pap Smear (08/28/2021 12:00 AM EDT) Swab Historical Provider LAB CYTOLOGY ORDERABLES F inal Result IMAGING documented in this encounter Visit Diagnoses Not on filedocumented in this encounter Care Teams Boiler Blower Relationship Specialty Start Date End Date Anh Lujan MD [address] [place] [phone] PCP - General Family Medicine 11/17/18 Marco Hyman MD [address] [place] [address] Rheumatology 11/15/24 Jan Escalona MD [address] [place] [address] Pain Medicine 11/15/24 Jorge L Jones MD [address] [place] [address] Dr [address] [place] [address] Neurology 11/15/[address] [address] Psychiatry 11/15/24 Dr. Marino Nguyen MD [address] [address] Gastroenterology 11/29/24 documented as of this encounter
--- OUTSIDE RECORDS SUMMARY | 2025-02-17 11:35 | XMS_ITS | Encounter Summary ---
Author Organization [email or web address] [facility] Address [address] [place] [address] 7t [place] [address] Care Team Providers Care Finance Consultant Name Role Phone Anh Lujan MD Primary Care Provider + [phone] Marco Hyman MD Unavailable Jan Escalona MD Unavailable Encounter Details Date Type Department Care Team (Late st Contact Info) Description 08/20/[address] [facility] MEDICINE [address] [place], [place] [phone] Jennifer Álvarez Social History Tobacco Use Types Packs/Day Years [...] Description 02/21/2025 9:15 AM EDT Office Visit [facility] MEDICINE [address] [place], [place] [phone] Anh Lujan MD [address] [place], [place] [phone] documented as of this encounter Procedures Procedure Name Priority Date/Time Associated Diagnosis Comments HM PAP/HPV Routine 07/09/2022 documented in this encounter Results * Pap Smear (07/09/2022) Pap Negative for intraephithelial lesion or malignancy Negative for intraephithelial lesion or malignancy, Other HPV Undetected us Historical Provider HEALTH MAINTENANCE Final Result documented in this encounter Visit Diagnoses Not on filedocumented in this encounter Additional Health Concerns Assessment Noted Time PHQ-9 Depression Total Score: 0 02/22/20 9:38 AM EDT documented as of this encounter Care Teams Finance Consultant Relationship Specialty Start Date End Date Anh Lujan MD [address] [place] [address] PCP - General Family Medicine 11/17/18 Marco Hyman MD [address] [place] [address] Rheumatology 11/15/24 Jan Escalona MD [address] [place] [address] Pain Medicine 11/15/24 JorgeL Jones MD [address] [place] [address] Dr [address] [place] [address] Neurology 11/15/[address] [address] Psychiatry 11/15/24 Dr. Marino Nguyen MD [address] [address] Gastroenterology 11/29/24 documented as of this encounter
--- OUTSIDE RECORDS SUMMARY | 2025-02-17 11:35 | XMS_ITS | Clinical Summary ---
Author Organization [employer] Address [address] [place] [address] Care Team Providers Care Operations Business Partner Name Role Phone Anh Lujan MD Primary Care Provider [phone] Marco Hyman MD Unavailable Jan Escalona MD Unavailable Allergies Active Allergy Reactions Criticality Noted Date Comments Baclofen 04/05/2016 Cyclobenzaprine 04/05/2016 Diazepam Hallucinations 10/22/2018 Egg White (Egg Protein) 02/20/2023 Lorazepam Hallucinations 10/22/2018 Naproxen Nausea Only 10/22/2018 Ondansetron 02/20/2023 Tramadol 04/05/2016 Medications Vitamin D High Potency 25 MCG (1000 UT) capsuleIndicatio ns:Vitamin deficiency TAKE 1 CAPSULE BY MOUTH DAILY 30 capsule 1 3 Active clonazePAM (KlonoPIN) 2 MG tabletIndication s:Insomnia, unspecified type Take by mouth if needed in the morning and at bedtime for seizures. TAKE 1 TABLET BY MOUTH AT BEDTIME NEEDED FOR SLEEP CAN TAKE 1 TABLET BY MOUTH NEEDED FOR PANIC ATTACK Per neurology Dr. Herbert Active mirtazapine (Remeron) 45 MG tabletIndication s:Recurrent major depressive episodes, mild (CMS/HCC) Take 45 mg by mouth at bedtime. Active DULoxetine (Cymbalta) [address] Jeff ns:Recurrent major depressive episodes, mild (CMS/HCC) Take 30 mg by mouth 2 times daily. Do not crush or chew. Active amitriptyline (Elavil) 100 MG tabletIndication s:Fibromyalgia Take 100 mg by mouth at bedtime. Active acetaminophen-co deine (Tylenol w/ Codeine #4) 300-60 MG tabletIndication s:Chronic back pain, unspecified back location, unspecified back pain laterality Take by mouth. One tab po at bedtime prn Active Vit-Fe Fumarate-FA ( Vitamins) 28-0.8 MG tabletIndication s:Vitamin deficiency TAKE 1 TABLET BY MOUTH EVERY DAY 90 tablet 5 Active tiZANidine (Zanaflex) 4 MG tabletIndication s:Fibromyalgia TAKE 1 TABLET BY MOUTH IN THE MORNING AND AT BEDTIME NEEDED FOR MUSCLE SPASMS 60 tablet 2 5 Active ibuprofen 800 MG tabletIndication s:Fibromyalgia TAKE 1 TABLET BY MOUTH THREE TIMES DAILY WITH FOOD OR MILK NEEDED 30 tablet 2 5 Active Active Problems Problem Noted Date Diagnosed Date Bilateral hand numbness 11/29/2024 Overview (11/29/2024): - Referred to Rheumatology 11/29/24 Assessment & Plan (11/29/2024 12:32 PM EST): - Referred to Rheumatology 11/29/24 Chronic back pain 11/29/2024 Overview (11/29/2024): - Prescribed acetaminophen-codeine (Tylenol w/ Codeine #4) 300-60 MG tablet 11/29/24 - Referred to Rheumatology 11/29/24 Assessment & Plan (11/29/2024 12:35 PM EST): - Prescribed acetaminophen-codeine (Tylenol w/ Codeine #4) 300-60 MG tablet 11/29/24 - Referred to Rheumatology 11/29/24 Chronic prescription benzodiazepine use 11/15/20 24 Chronic prescription opiate use 11/15/2024 Subclinical hyperthyroidism 01/15/2024 Overview (11/15/2024): Lab Results Component Value Date TSH 0.44 01/16/2024 Colon cancer screening 12/24/2023 Overview (11/29/2024): -due for colon cancer screening. Telephone outreach done week of 12/24/23 to see if pt agreeable to referral - Referral made to GI for colon cancer screeening 01/15/24 - Colonoscopy results were normal. Completed on 11/24/[address] Nguyen in [facility] 11/29/24 Assessment & Plan (11/29/2024 10:04 AM EST): -due for colon cancer screening. Telephone outreach done week of 12/24/23 to see if pt agreeable to referral - Referral made to GI for colon cancer screeening 01/15/24 - Colonoscopy results were normal. Completed on 11/24/[address] Nguyen in [facility] 11/29/24 Assessment & Plan (01/15/2024 9:51 AM EST): -due for colon cancer screening. Telephone outreach done week of 12/24/23 to see if pt agreeable to referral - Referral made to GI for colon cancer screeening 01/15/24 Other specified health status 09/25/2023 Overview (11/29/2024): -next physical exam due after -eye care facilitated by [facility] -dental home is [facility] -Health care proxy paperwork completed by the patient 01/15/24 Assessment & Plan (01/15/2024 10:11 AM EST): -next physical exam due after 01/15/24 -eye care facilitated by [facility] -dental home is [facility] - Health care proxy paperwork completed by the patient 01/15/24 Irregular menstrual cycle 02/20/2023 Overview (01/16/2024): After starting Provera patient had withdrawal bleed but then stopped and has not had a menses since. Pt does not want to go on control and states she does not mind if she become . Labs on 01/12 included negative hCG FSH was 30.3 LH was 17.6 TSH was nml on 12/2019. Prolactin was nml at 4.3 on 01/2019. Rheumatology labs including ESR and RENE were negative. -Avionics Systems Repairer feels its due to age related menorrhea. Assessment & Plan (01/16/2024 11:55 AM EST): After starting Provera patient had withdrawal bleed but then stopped and has not had a menses since. Pt does not want to go on control and states she does not mind if she become . Labs on 01/12 included negative hCG FSH was 30.3 LH was 17.6 TSH was nml on 12/2019. Prolactin was nml at 4.3 on 01/2019. Rheumatology labs including ESR and RENE were negative. -Avionics Systems Repairer feels its due to age related menorrhea. Assessment & Plan (02/20/2023 11:13 AM EDT): After starting Provera patient had withdrawal bleed but then stopped and has not had a menses since. Pt does not want to go on control and states she does not mind if she become . Labs on 01/12 included negative hCG FSH was 30.3 LH was 17.6 TSH was nml on 12/2019. Prolactin was nml at 4.3 on 01/2019. Rheumatology labs including ESR and RENE were negative. -Avionics Systems Repairer feels its due to age related menorrhea. 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 On multiple occasions we discussed and she was given information in [place] for her to review on fibromyalgia. She self discontinued Mobic and gabapentin. Trial Lyrica 75 mg bid stopped due to . RENE, RH, ESR, lyme titers, CBC and electrolytes unremarkable. She reports smoking marijuana helps her. She has seen PT and chiropractor for years without improvement. I have declined writing narcotics as they are not shown to improve pain or function in patients with fibromyalgia. 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 On multiple occasions we discussed and she was given information in [place] for her to review on fibromyalgia. She self discontinued Mobic and gabapentin. Trial Lyrica 75 mg bid stopped due to . RENE, RH, ESR, lyme titers, CBC and electrolytes unremarkable. She reports smoking marijuana helps her. She has seen PT and chiropractor for years without improvement. I have declined writing narcotics as they are not shown to improve pain or function in patients with fibromyalgia. 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 On multiple occasions we discussed and she was given information in [place] for her to review on fibromyalgia. She self discontinued Mobic and gabapentin. Trial Lyrica 75 mg bid stopped due to . RENE, RH, ESR, lyme titers, CBC and electrolytes unremarkable. She reports smoking marijuana helps her. She has seen PT and chiropractor for years without improvement. I have declined writing narcotics as they are not shown to improve pain or function in patients with fibromyalgia. 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 On multiple occasions we discussed and she was given information in [place] for her to review on fibromyalgia. She self discontinued Mobic and gabapentin. Trial Lyrica 75 mg bid stopped due to . RENE, RH, ESR, lyme titers, CBC and electrolytes unremarkable. She reports smoking marijuana helps her. She has seen PT and chiropractor for years without improvement. I have declined writing narcotics as they are not shown to improve pain or function in patients with fibromyalgia. - Continue Cymbalta 30 mg, psychiatry contacted to make sure they are aware she is taking 08/2020 Nicotine dependence 01/03/2022 Overview (11/29/2024): -Cigg/day: 5 cigarettes/day -Age started: 16 -Total years smokin -Pack year history: Encouraged smoking cessation resources such as pharmacomtherapy, [facility] smoking cessation group, and [facility] pharmacy smoking cessation clinic Discussed USPSTF recommends annual lung cancer screening with low dose CT in people who meet the following criteria: -ages 50 to 80 years. -have a 20 pack-year smoking history. -currently smoke cigarettes or quit within the past 15 years. -Patient agrees to be referred to CDTM to help with smoking cessation 01/15/2024 -LDCT: Not indicated at this time - Pt declined the nicotine patch 11/29/24 - Referred to Collaborative Drug Therapy Managment Program with our PharmYAZAN Obando 11/29/24 Assessment & Plan (11/29/2024 12:29 PM EST): -Cigg/day: 5 cigarettes/day -Age started: 16 -Total years smokin -Pack year history: Encouraged smoking cessation resources such as pharmacomtherapy, [facility] smoking cessation group, and [facility] pharmacy smoking cessation clinic Discussed USPSTF recommends annual lung cancer screening with low dose CT in people who meet the following criteria: -ages 50 to 80 years. -have a 20 pack-year smoking history. -currently smoke cigarettes or quit within the past 15 years. -Patient agrees to be referred to CDTM to help with smoking cessation 01/15/2024 -LDCT: Not indicated at this time - Pt declined the nicotine patch 11/29/24 - Referred to Collaborative Drug Therapy Managment Program with our PharmDYAZAN 11/29/24 Assessment & Plan (01/15/2024 10:01 AM EST): -Cigg/day: 5 -Age started: 16 -Total years smokin -Pack year history: Encouraged smoking cessation resources such as pharmacomtherapy, [facility] smoking cessation group, and [facility] pharmacy smoking cessation clinic Discussed USPSTF recommends annual lung cancer screening with low dose CT in people who meet the following criteria: -ages 50 to 80 years. -have a 20 pack-year smoking history. -currently smoke cigarettes or quit within the past 15 years. -LDCT: -Patient agrees to be referred to CDTM to help with smoking cessation 01/15/2024 Assessment & Plan (02/21/2023 10:12 AM EDT): 10 cigarettes a day. Referral to CDTM 02/21/2023. Recurrent major depressive episodes, mild 2021 Overview (11/29/2024): Continue with Continue with therapist and psychiatrist. No MANDEEP.therapist and psychiatrist. No MANDEEP. - Prescribed mirtazapine (Remeron) 45 MG tablet 11/29/24 - Prescribed DULoxetine (Cymbalta) [address] capsule 11/29/24 Assessment & Plan (11/29/2024 12:34 PM EST): Continue with Continue with therapist and psychiatrist. No MANDEEP.therapist and psychiatrist. No MANDEEP. - Prescribed mirtazapine (Remeron) 45 MG tablet 11/29/24 - Prescribed DULoxetine (Cymbalta) [address] capsule 11/29/24 Assessment & Plan (01/15/2024 9:36 AM EST): Continue with therapist and psychiatrist. No MANDEEP. Assessment & Plan (02/20/2023 11:13 AM EDT): Continue with therapist and psychiatrist. No MANDEEP. Insomnia 05/28/2013 Overview (11/29/2024): - Prescribed clonazePAM (KlonoPIN) 2 MG tablet 11/29/24 Assessment & Plan (11/29/2024 12:32 PM EST): - Prescribed clonazePAM (KlonoPIN) 2 MG tablet 11/29/24 Resolved Problems Problem Noted Date Diagnosed Date Resolved Date Annual physical exam 01/15/2024 024 Physical exam 02/21/2023 09/25/2023 Overview (02/21/2023): -Normal growth and development. -Anticipatory guidance discussed. -Cholesterol profile and DM screen neg 01/2022. -Preventative care / harm reduction discussed. Assessment & Plan (02/21/2023 9:40 AM EDT): -Normal growth and development. -Anticipatory guidance discussed. -Cholesterol profile and DM screen neg 01/2022. -Preventative care / harm reduction discussed. Acute bilateral low back zulema n without sciatica 02/21/2023 11/15/2024 Overview (02/21/2023): Pt would like a referral a chiropractor 02/21/2023. Assessment & Plan (01/15/2024 9:36 AM EST): Pt would like a referral a chiropractor 02/21/2023. Assessment & Plan (02/21/2023 10:14 AM EDT): Pt would like a referral a chiropractor 02/21/2023. Abnormal menstrual cycle 01/03/2022 Abnormal serum thyroid stimu lating hormone (TSH) level 01/03/2022 11/15/2024 Overview (01/16/2024): Low TSH on two readings. normal Free T4. Only symptoms abnormal menses. Will recheck with Utox was negative. TSH low at 0.32 09/2021 Lab Results Component Value Date TSH 0.44 01/16/2024 Assessment & Plan (01/16/2024 12:22 PM EST): Low TSH on two readings. normal Free T4. Only symptoms abnormal menses. Will recheck with Utox was negative. TSH low at 0.32 09/2021 Lab Results Component Value Date TSH 0.44 01/16/2024 Assessment & Plan (02/20/2023 11:12 AM EDT): Low TSH on two readings. normal Free T4. Only symptoms abnormal menses. Will recheck with Utox was negative. TSH low at 0.32 09/2021, check labs below Most recent TSH was 0.32 with a normal T4 of 1.1. Backache 05/28/2013 11/15/2024 Depressive disorder 05/28/2013 02/21/20 23 Overview (02/20/2023): Continue with therapist and psychiatrist. Assessment & Plan (02/20/2023 11:11 AM EDT): Continue with therapist and psychiatrist. Joint pain 05/28/2013 11/15/2024 Encounters Date Type Department Care Team Description 02/11/2025 Patient Outreach [address] [address] Anh Lujan MD Pre-visit Planning (SDOH screening was completed on 11/29/2024) 01/07/[address] [address] Anh Lujan MD 12/14/[address] [address] Anh Lujan MD Fibromyalgia 12/13/[address] [address] Isabel Gutierrez MA Recalls February (I book the appt on 02/21/2025 for physical.) 12/13/2024 Travel 11/29/2024 9:45 AM EST Office Visit [address] [address] Anh Lujan MD Subclinical hyperthyroidism (Primary Dx); Other specified health status; Insomnia, unspecified type; Recurrent major depressive episodes, mild (CMS/HCC); Fibromyalgia; Chronic back pain, unspecified back location, unspecified back pain laterality; Colon cancer screening; Bilateral hand numbness; Encounter for immunization; Nicotine dependence, uncomplicated, unspecified nicotine product type 11/29/2024 Patient Outreach [facility] [address] [place] [id number] Anh uLjan MD Care Coordination (CHW outreach for SDOH PT-1 and food need- LVM ) 11/29/2024 Refill [facility] [address] [place] [address] Anh Lujan MD Vitamin deficiency 11/29/2024 Travel from Last 3 Months Immunizations Name Administration Dates Next Due DTaP 04/14/2014 Hep A, Adult 11/29/2024 Hep B, adult 11/29/2024,01/15/2024,02/21/2023 Influenza Injectable Quadriv alant Preservative Free IIV4 MDCK 10/02/2023 Influenza injectable quadriv alent IIV4 with preservative 02/21/2023,12/29/2017 Influenza injectable quadriv alent preservative free 08/30/2020,10/01/2019,01/11/2019,2015 Influenza, IIV3, injectable 08/29/2021, 5,11/07/2009 [place] SARS-CoV-2 Vaccination 02/07/2021 Pfizer Covid-19 Vaccine 12+ Bivalent 02/21/2023 Pneumococcal Conjugate PCV 20 01/15/2024 TD (adult), 2 Lf tetanus tox oid, preservative free, adsorbed 08/26/2006 Tdap 11/29/2024,07/06/2014 Family History Medical History Relation Name Comments Cerebral palsy Daughter Awildaannlisa Breast cancer Mother Diabetes Mother Relation Name Status Comments Daughter Treylianne Alive Mother Social History Tobacco Use Types Packs/Day Years Used Date Smoking Tobacco: Every Day Cigarettes Passive Smoke Exposure: Current Smokeless Tobacco: Never Tobacco Cessation:Ready to Q uit: Not Asked; Counseling Given: Not Answered Alcohol Use Standard Drinks/Week Comments Never 0 (1 standard drink = 0.6 oz pur e alcohol) Depression Answer Date Recorded Patient Health Questionnaire-9 Score 5 11/29/2024 Patient Health Questionnaire-9 Score 5 11/29/2024 Last PHQ-9: Questionnaire Data Not on file 0 11/29/2024 Housing Stability Answer Date Recorded What is your housing situation today? I have oriana sousa 11/18/[address] you li ve. Do you have problems with any of the following? None of the above 11/18/2024 Food Insecurity Answer Date Recorded Within the past 12 months, y ou worried that your food would run out before you got money to buy more: Sometimes True 2024 Within the past 12 months,th e food you bought just didn't last and you didn't have enough money to get more: Sometimes True 11/18/2024 Transportation Answer Date Recorded In the past 12 months, has l ack of transportation kept you from medical appts, meetings, work or from getting things needed for daily living? No 11/18/2024 Utilities Answer Date Recorded In the past 12 months, has t he electric, gas, oil or water company threatened to shut off services in your home? Yes 11/18/2024 Depression Answer Date Recorded Patient Health Questionnaire-2 Score 1 11/29/2024 Internet Access Answer Date Recorded Internet Access Q1 Yes 11/18/2024 Internet Access Q2 Not on file 11/18/2024 Comments Unknown Sex and Gender Information Value Date Recorded Sex Assigned at Female 09/16/2022 10:18 AM EDT Legal Sex Female 10:18 AM EDT Gender Identity Female 09/16/2022 10:18 AM EDT Sexual Orientation Choose not to disclose 2021 10:18 AM EDT Last Filed Vital Signs Vital Sign Reading Time Taken Comments Blood Pressure 112/60 11/29/2024 9:49 AM EST Pulse 70 11/29/2024 9:49 AM EST Temperature 36.8 ??C (98.3 ??F) 11/29/2024 9:49 AM ES T Respiratory Rate 16 11/29/2024 9:49 AM EST Oxygen Saturation 98% 01/15/2024 9:35 AM EST Inhaled Oxygen Concentration - - Weight 61.2 kg (135 lb) 11/29/2024 9:49 AM EST Height 165.1 cm (5' 5 ) 11/29/2024 9:49 AM EST Body Mass Index 22.47 11/29/2024 9:49 AM EST Plan of Treatment Upcoming Encounters Date Type Department Care Team (Late st Contact Info) Description 02/21/2025 9:15 AM EDT Office Visit [facility] [address] [place], [place] [phone] Ahn Lujan MD [address] [place] [address] Health Maintenance Due Date Last Done Comments CT Colonography 1978 FIT DNA/Cologuard 1978 FIT 1978 FOBT 1980 Sigmoidoscopy 1978 Family Planning (PISQ) 1993 Alcohol/Substance Use Screening 11/29/2025 11/29/2024 COVID-19 Vaccine ( season) 2025 02/21/2023, 11/12/2021, 02/07/2021 Postponed from 07/18/2024 (Patient Refused) Depression Screening 11/29/2025 11/29/2024, 11/29/19 SDOH Screening 11/29/2025 11/29/2024 Tobacco Screening 11/29/2025 11/29/2024 Mammogram 08/28/2026 08/28/2024, 07/18, 08/20/2022, Additional history exists Cervical Cancer Screening 07/09/2027 HPV/Cotest 07/09/2027 07/09/2022, 06/18, 07/09/2022 Pap Smear 07/09/2027 07/09/2022, 08/28/2021 Zoster Vaccines (1 of 2) 2028 Lipid Panel 01/15/2029 01/16/2024, 01/28/2022 Colonoscopy 11/24/2034 11/24/2024 Colorectal Cancer Screening 11/24/2034 DTaP/Tdap/Td Vaccines (4 - Td or Tdap) 11/29/2034 11/29/2024, 07/06/2014, 04/14/2014, Additional history exists RSV Patients and Patients Aged 60 years or older (1 - 1-dose 75+ series) 2053 Hepatitis C Screening Completed 01/15/2016 HIV Screening Completed 01/28/2022 Pneumococcal Vaccine: Pediatrics (0 to 5 Years) and At-Risk Patients (6 to 49) Years) Completed 01/15/2024 Hepatitis A Vaccines Aged Out 11/29/2024 No long er eligible based on patient's age to complete this topic Hepatitis B Vaccines Completed 11/29/2024, 01/15/2024, 02/21/2023 Influenza Vaccine Completed 12/29/2024, , 02/21/2023, Additional history exists HIB Vaccines Aged Out No longer eligi ble based on patient's age to complete this topic HPV Vaccines Aged Out No longer eligi ble based on patient's age to complete this topic IPV Vaccines Aged Out No longer eligi ble based on patient's age to complete this topic Meningococcal Vaccine Aged Out No yaniv isra eligible based on patient's age to complete this topic RSV under 20 months Aged Out No longe r eligible based on patient's age to complete this topic Rotavirus Vaccines Aged Out No longer eligible based on patient's age to complete this topic Procedures Procedure Name Priority Date/Time Associated Diagnosis Comments COLONOSCOPY Routine 11/24/2024 BI MAMMOGRAM SCREENING TOMOSYNTHESIS BILATERAL Routine 08/28/2024 8:46 AM EDT LIPID PANEL, STANDARD Routine 01/16/2024 8:42 AM EST Elevated LDL cholesterol level PAP/HPV Routine 07/09/2022 HIV 1/2 ANTIGEN/ANTIBODY, FOURTH GENERATION W/RFL Routine 01/28/2022 9:18 AM EDT HEPATITIS C AB W/REFL TO HCV RNA, QN, PCR Routine 01/15/2016 from Last 3 Months or Most Recently Relevant to Health Maintenance Results * Colonoscopy (11/24/2024) Colonoscopy Normal Normal Comment:with Dr. Marino Nguyen MD at [facility] us Historical Provider MD HEALTH MAINTENANCE Final Result * BI Mammogram Screening Tomosynthesis Bilateral (08/28/2024 8:46 AM EDT) Anatomical Region Laterality Modality Breast Bilateral Mammography 08/28/2024 8:46 AM EDT Narrative 09/09/2024 10:04 PM EDT ? [facility] ? [address] ?[place] [address] ? Mammography Report ? Signed ? Patient: Salaman,Harriet ?MR#: [id number] ?? 97 ? : 1980 ?Acct:[id number] ? Age/Sex: 44 / F ?ADM Date: 08/28/24 ? Loc: HO.MAMMO ? Attending Dr: Anh Lujan MD ? Ordering Physician: Anh Lujan MD ?Results: 1N ?? egative ? Date of Service: 08/28/24 ?Follow Up: 1 Year From Orig ?? inal Mammogram ? Procedure(s): MM tomosynthesis screening BI ?? Accession Number(s): [id number] ? cc: Anh Lujan MD ? EXAMINATION: ?? MM SCREENING DIGITAL BREAST TOMOSYNTHESIS, BILATERAL ? CLINICAL INFORMATION: ? Screening. Asymptomatic. ? COMPARISON: ?? Mammography: Comparison is made with available priors ? TECHNIQUE: ?? Digital breast mammography with tomosynthesis is performed in both the ?? craniocaudal and mediolateral oblique views along with computer-aided ?? detection (CAD). ? FINDINGS: ?? The breasts are heterogeneously dense, which may obscure small masses ?? (ACR BI-RADS breast composition Category c). ? There are no significant masses, abnormal calcifications, or other ?? abnormalities. ? MM/MM tomosynthesis screening BI ?? IMPRESSION: ?? No mammographic evidence of malignancy. ? ASSESSMENT: ? BI-RADS BI-RADS 1 - Negative ? RECOMMENDATION: ?? Routine annual mammography screening. ? 1 year F/U ? This examination should not preclude the clinical evaluation of a ?? suspicious palpable abnormality. ? This patient's information was entered into a reminder system with a ?? target due date for their next mammogram. ? Electronically signed by: ??Kanika Cardoza DO ??09/09/2024 10:01 PM EDT ?? RP ? Dictated By: ?Kanika Cardoza DO ? Signed By: ?<Electronically signed by Kanika Cardoza, DO in [place]> ? 09/09/241 ? DD/ ? TD/TT: 08/28/24 0858 ? Patient Representative: ? Procedure Note Donjayter, Image - 09/09/2024 [facility] [address] [place] [address] Mammography Report Signed Patient: Johnathan Olsen#: [id number] 97 : 1980Acct:[id number] Age/Sex: 44 / FADM Date: 08/28/24 Loc: HO.MAMMO Attending Dr: Anh Lujan MD Ordering Physician: Anh Lujan MDResults: 1N egative Date of Service: 08/28/24Follow Up: 1 Year From Orig inal Mammogram Procedure(s): MM tomosynthesis screening BI Accession Number(s): [id number] cc: Anh Lujan MD EXAMINATION: MM SCREENING DIGITAL BREAST TOMOSYNTHESIS, BILATERAL CLINICAL INFORMATION: Screening. Asymptomatic. COMPARISON: Mammography: Comparison is made with available priors TECHNIQUE: Digital breast mammography with tomosynthesis is performed in both the craniocaudal and mediolateral oblique views along with computer-aided detection (CAD). FINDINGS: The breasts are heterogeneously dense, which may obscure small masses (ACR BI-RADS breast composition Category c). There are no significant masses, abnormal calcifications, or other abnormalities. MM/MM tomosynthesis screening BI IMPRESSION: No mammographic evidence of malignancy. ASSESSMENT: BI-RADS BI-RADS 1 - Negative RECOMMENDATION: Routine annual mammography screening. 1 year F/U This examination should not preclude the clinical evaluation of a suspicious palpable abnormality. This patient's information was entered into a reminder system with a target due date for their next mammogram. Electronically signed by: Kanika Cardoza DO 09/09/2024 10:01 PM EDT RP Dictated By: Kanika Cardoza DO Signed By: <Electronically signed by Kanika Cardoza DO in OV> 09/09/242200 DD/ 5 TD/TT: 08/28/24 0858 Patient Representative: Anh Lujan MD IMG BI PROCEDURES Edited R esult - Final * (ABNORMAL) Lipid Panel, Standard (01/16/2024 8:42 AM EST) Triglycerides 53 <150 mg/dL [facility] Comment:Desirable Triglyceri de: less than 150 mg/dLBorderline High Triglyceride 150-199 mg/dLHigh Triglyceride: 200-499 mg/dLVery High Triglyceride: greater than or equal to 5OO mg/dL Cholesterol 161 <200 mg/dL [facility] Comment:Desirable Cholestero l: less than 200 mg/dLBorderline High Cholesterol: 200-239 mg/dLHigh Cholesterol: greater than 239 mg/dL LDL Cholesterol Calculated 106(H) <100 mg/dL [facility] Comment:Desirable LDL: less than 100 mg/dLNear Optimal/Above Optimal LDL: 110- 129 mg/dLBorderline High LDL: 130-159 mg/dLHigh LDL: 160-189 mg/dLVery High LDL: greater than or equal to 190 mg/dL HDL Cholesterol 45 >40 mg/dL [facility] Comment:Desirable HDL: great er than 40 mg/dL Note: This HDL assay may give artificially low results in patients with liver disease. Blood Venous blood specimen / Unknown 01/16/2024 8:42 AM EST 01/16/2024 11:22 AM EST Anh Lujan MD LAB BLOOD ORDERABLES Final Result [facility] [address] [place] [address] [phone] * Hm Pap Smear (07/09/2022) Pap Negative for intraephithelial lesion or malignancy Negative for intraephithelial lesion or malignancy, Other HPV Undetected Historical Provider HEALTH MAINTENANCE Final Result * HIV 1/2 ANTIGEN/ANTIBODY,FOURTH GENERATION W/RFL (01/28/2022 9:18 AM EDT) HIV-1/2 ANTIGEN AND ANTIBODIES, 4TH GENERATION W/ REFLEX NON-[facility]ACT [facility] Comment: HIV-1 antigen and HIV-1/HIV-2 antibodies were not detected. There is no laboratory evidence of HIV infection. ?? PLEASE NOTE: This information has been disclosed to you from records whose confidentiality may be protected by state law. ??If your state requires such protection, then the state law prohibits you from making any further disclosure of the information without the specific written consent of the person to whom it pertains, or as otherwise permitted by law. A general authorization for the release of medical or other information is NOT sufficient for this purpose. ? For additional information please refer to http://education.Quintura/faq/KLM978 (This link is being provided for informational/ educational purposes only.) ? The performance of this assay has not been clinically validated in patients less than 2 years old. ?? 01/28/2022 9:18 AM EDT Anh Lujan MD LAB BLOOD ORDERABLES Final Result [facility] [address] * Hepatitis C Antibody with Reflex to HCV, RNA, Quantitative, Real-Time PCR (01/15/2016) Blood Venous blood specimen / Unknown 01/15/2016 Anh Ochoa MD - 01/15/2016 3:29 PM EST negative us Historical Provider LAB BLOOD ORDERABLES Odalys l Result from Last 3 Months or Most Recently Relevant to Health Maintenance [place] [address] [place] [address] STANDARD MEDICARE Advance Directives Documents on File Type Date Recorded Patient Installation Supervisor Expl anation Advance Directives and Living Will 11/29/2024 Health Care Proxy 11/29/24 Advance Directives and Living Will 01/15/2024 Health Care Proxy Care Teams Operations Business Partner Relationship Specialty Start Date End Date [place], [place] Anh [address] [place] [address] PCP - General Family Medicine 11/17/18 Marco Hyman MD [address] [place] [address] Rheumatology 11/15/24 Jan Escalona MD [address] [place] [address] Pain Medicine 11/15/24 Jorge L Jones MD [address] [place] [address] [address] [place] [address] Neurology 11/15/[address] [address] Psychiatry 11/15/24 Dr. Marino Nguyen MD [address] [address] Gastroenterology 11/29/24
== END 2025-02-17 10:30 | disposition home or self-care (01) ==
LOC: HO.MRI 10:29
PROVIDERS: PCP Family Medicine; Visit Provider Registered Nurse
DX: M51.26 Other intervertebral disc displacement, lumbar region (principal)
CPT/HCPCS: 72148

== ENCOUNTER → 2025-02-17 12:35 | Outpatient (BNV) | payer MEDICARE, MEDICAID, SELFPAY | PROVIDERS: PCP Family Medicine; Visit Provider Radiology Diagnostic Radiology | DX: M47.817 Spondylosis without myelopathy or radiculopathy, lumbosacral region (principal) | CPT/HCPCS: 72148 ==

== ENCOUNTER 2025-06-27 13:40 | Outpatient (REF) | payer MEDICARE, MEDICAID, SELFPAY ==
[2025-06-27 16:11] LABS: MANUAL DIFF FLAG NO
[2025-06-27 16:18] LABS: Hematocrit 37.1 % (37.0-47.0); Hemoglobin 12.8 g/dl (12.0-16.0); Imm Gran Abs Auto 0.01 X10*3/uL (0.00-0.03); Imm Gran Pct Auto 0.2 % (0.0-0.4); Lymphocytes Absolute Auto 2.4 X10*3/uL (1.2-4.9); Mean Corpuscular HGB Conc 34.5 g/dl (31.0-35.0); Mean Corpuscular Hemoglobin 31.8 pg (27.0-33.0); Mean Corpuscular Volume 92.1 fL (80.0-98.0); NRBC Abs Auto 0.000 X10*3/uL (0.0-0.012); NRBC Pct Auto 0.0 /100WBC (0.0-0.2); Platelet Count 270 X10*3/uL (160-400); Red Blood Count 4.03 X10*6/uL (4.20-5.50); White Blood Count 5.5 X10*3/uL (4.8-10.8)
[2025-06-27 16:35] LABS: Alanine Aminotransferase 13 U/L (0-31); Albumin Level 4.5 g/dL (3.5-5.0); Alkaline Phosphatase 93 U/L (39-117); Anion Gap 11 (12-20); Aspartate Amino Transferase 32 U/L (5-31); Blood Urea Nitrogen 13 mg/dL (9-16); Calcium 9.3 mg/dL (8.4-10.2); Carbon Dioxide 28 mmol/L (22-29); Chloride 107 mmol/L (96-108); Cholesterol 174 mg/dL (<200); Estimated Glomerular Filt Rate > 60; HDL Cholesterol 47 mg/dL (>40); Potassium 3.6 mmol/L (3.3-5.1); Sodium 142 mmol/L (135-145); Total Protein 7.2 g/dL (6.5-8.0); Triglycerides 143 mg/dL (<150)
[2025-06-28 08:34] LABS: HIV Num 1 0.08 S/CO (0.00-0.99)
[2025-06-28 09:11] LABS: Syphilis Screen Nonreactive (Nonreactive)
== END 2025-06-27 13:41 | disposition home or self-care (01) ==
LOC: HO.HHCL 13:40
PROVIDERS: PCP Family Medicine
DX: E78.00 Pure hypercholesterolemia, unspecified (principal); E05.90 Thyrotoxicosis, unspecified without thyrotoxic crisis or storm; E55.9 Vitamin D deficiency, unspecified; F33.0 Major depressive disorder, recurrent, mild; N92.6 Irregular menstruation, unspecified; R10.2 Pelvic and perineal pain; Z20.2 Contact with and (suspected) exposure to infections with a predominantly sexual mode of transmission
CPT/HCPCS: 36415; 80048; 80061; 80076; 82306; 84443; 84702; 85025; 86780; 87389

== ENCOUNTER 2025-07-10 11:09 | Emergency (ER) | payer MEDICARE, MEDICAID, SELFPAY ==
--- NOTE | ~2025-07-10 | US_ITS ---
CLINICAL HISTORY: + preg lower abd rule out ectopic US pelvis transabdominal and transvaginal Comparison: US/IL/SR - US PELVIS TRANSABDOMINAL AND TRANSVAGINAL - 03/20/23 11:25 EDT Findings: Transabdominal scanning performed for overall anatomy. Transvaginal scanning performed for additional detail. There is no current evidence of intrauterine gestation. Anteverted uterus is 6.3 cm length. Normal myometrium. Endometrium 4 mm thickness. No lesions. Right ovary 2.3 x 1.6 x 1.9 cm. Left ovary not visualized Normal color Doppler of both ovaries. No free fluid. IMPRESSION: 1. No current evidence of intrauterine gestation. This may be secondary to early normal , failed or early ectopic . Recommend correlation with quantitative beta HCG and ultrasound follow-up as indicated. 2. Nonvisualization of the left ovary. This document has been electronically signed by: Mary Lou Iyer MD on 07/10/2025 17:01:39
[2025-07-10 11:16] VITALS: BP 139/61; PULSE 100; RESP 18; TEMP 36.7; O2SAT 98; BMI 21.2
[2025-07-10 12:32] VITALS: BP 102/62; PULSE 97; RESP 18; O2SAT 96
--- NOTE | 2025-07-10 12:50 | ED.GENADULT ---
HPI - General Adult General Chief complaint: General Medical Stated complaint: Bump on vagina Time Seen by Provider: 07/10/25 12:42 Source: patient Mode of arrival: ambulatory Limitations: no limitations History of Present Illness ED Provider: [facility] Stephens HPI narrative: Patient is a 44-year-old female presenting with a lump to the left labia ongoing for the past 3 days. She reports it is extremely painful. She tells me she has had 2 positive test a few days ago however she is not here for that she just wanted to let us know. She was on Nexplanon and has had regular bleeding unclear when her last period was. She tells me her left labia is hurting a lot and she is in a lot of pain. She reports it is very swollen and tender dose of the touch. Denies abdominal pain, nausea, vomiting, headache, vision changes, dizziness, weakness, chest pain and shortness of breath. Denies vaginal bleeding or discharge Related Data Home Medications ?Medication ?Instructions ?Recorded ?Confirmed ibuprofen 800 mg tablet 800 mg PO TID 09/27/22 07/18/23 cholecalciferol (vitamin D3) 25 25 mcg PO DAILY 07/18/23 07/18/23 mcg (1,000 unit) capsule (Vitamin D3) tizanidine 4 mg tablet 4 mg PO TID 07/18/23 07/18/23 clonazepam 2 mg tablet (Klonopin) 2 mg PO BID 01/12/24 acetaminophen 325 mg tablet 325 mg PO Q4H PRN 05/23/25 fluoxetine 20 mg capsule 20 mg PO DAILY 05/23/25 mirtazapine 30 mg tablet 30 mg PO BEDTIME 05/23/25 vits no.130-ferrous fum 1 tab PO DAILY 05/23/25 27 mg iron-folic acid 800 mcg tablet ( Vitamin) Previous Rx's ?Medication ?Instructions ?Recorded cephalexin 500 mg tablet 500 mg PO Q6H 7 days #28 tabs 07/10/25 Allergies Allergy/AdvReac Type Severity Reaction Status Date / Time baclofen Allergy Mild Rash Verified 07/10/25 11:18 barium sulfate (Volumen) Allergy Unknown Rash Verified 07/10/25 11:18 cyclobenzaprine (From Allergy Unknown dizzy,vomiting Verified 07/10/25 11:18 FLEXERIL) rash diazepam (Valium) Allergy Unknown Rash Verified 07/10/25 11:18 Flexeril Allergy Unknown rash, Verified 07/10/25 11:18 nausea and vomiting lorazepam (Ativan) Allergy Unknown Rash Verified 07/10/25 11:18 naproxen Allergy Unknown Rash Verified 07/10/25 11:18 tramadol (TRAMADOL) Allergy Unknown dizzy rash Verified 07/10/25 11:18 vomiting, vomiting, nausea and vomiting Review of Systems Review of Systems: Yes all other systems are reviewed and are negative [facility] Past Medical History Attestation statement: The following information was validated with the patient. Source: old records reviewed and nursing notes reviewed Medical History Anxiety disorder with panic attacks Depression Osteoarthritis Lumbar disc herniation Arnold-Chiari deformity Sinusitis Bilateral carpal tunnel syndrome Compression of brain Fibromyalgia Surgical History Hx of section Family History Family History Mother Breast cancer Social History Social History Alcohol intake: former Patient Tobacco Use Status: Current everyday Tobacco user Cigarettes Per Day: 10 Years Smoked: 20 Smoked in Last 30 Days: No Use of substances other than those prescribed or required for medical reasons: No Substance Use Type: Marijuana Advance Directives: No Advance Directives Information Provided: No Do you have a plan to hurt others: No Plan Physical Exam ED Exam Exam: Appearance: Alert.? Oriented X3.? No acute distress.? Head: Normocephalic, atraumatic, no step-offs or deformities Eyes: Pupils equal, round and reactive to light.? ENT: Pharynx normal.? Neck: Normal inspection.? Neck supple.? CVS: Normal heart rate and rhythm.? Pulses normal.? Respiratory: No respiratory distress.? Breath sounds normal.? Abdomen: Soft and nontender.? Skin: Skin warm and dry.? Normal skin color.? Normal skin turgor.? Extremities: No lower extremity edema.? No calf ttp. 5/5 strength to bilateral upper and lower extremities Back: No midline tenderness, no C-spine tenderness, full range of motion, no CVA tenderness bilaterally Neuro: Oriented X 3.? No motor deficit.? No sensory deficit. CN 2-12 intact Sensitive exam: (Non Profit Job Titles Jody and Dr. Corey) Significant edema to the left labium majora and minora with overlying erythema, warmth it is mostly indurated. However unable to palpate fluctuance. Vital Signs: Vital Signs - 24 hr 07/10/25 11:16 07/10/25 12:32 07/10/25 14:29 Temperature 98.1 F Pulse Rate 100 97 87 Respiratory Rate 18 18 18 Blood Pressure 139/61 102/62 104/58 L Pulse Oximetry 98 96 97 Oxygen Delivery Method Room Air Room Air Room Air 07/10/25 16:21 Temperature Pulse Rate 81 Respiratory Rate 16 Blood Pressure 111/66 Pulse Oximetry 98 Oxygen Delivery Method Room Air BMI result Body Mass Index 21.2 vss Course Reevaluation(s) Reevaluation #1: Soft tissue US at the bedside showing significant edema and possible early abscess. Dr. Corey at the bedside for this US Time: 14:30 Reevaluation #2: CBC with leukocytosis 13.3 no left shift. Chemistry with no acute findings needing intervention. Beta hCG 5 patient was educated that she needs a follow-up beta hCG. Advised to return with abdominal pain, vaginal bleeding or discharge, fevers or chills Educated patient on diagnosis and treatment plan, answered all question, patient verbalizes understanding. At this time patient will be discharged home, advised to return with new or worsening symptoms. Educated on worrisome signs and symptoms and when to return. At this time I feel comfortable discharge home. Time: 17:07 Medical Decision Making Medical Decision Making MDM Narrative: 44 year old female presents w/ swollen L labia. + urine preg a home PE Sensitive exam: (Non Profit Job Titles Jody and Dr. Corey) Significant edema to the left labium majora and minora with overlying erythema, warmth it is mostly indurated. However unable to palpate fluctuance. History and physical exam consistent with labial cellulitis and possible early abscess as seen on bedside ultrasound. Unlikely necrotizing fasciitis, or Wilson gangrene. Low suspicion for acute miscarriage, ectopic . Plan labs, imaging. Differential Diagnosis Differential Diagnoses: The differential diagnosis associated with the presentation includes (History and physical exam consistent with labial cellulitis and possible early abscess as seen on bedside ultrasound. Unlikely necrotizing fasciitis, or Wilson gangrene. Low suspicion for acute miscarriage, ectopic .) Admission/Observation Consideration of admission/observation: Escalation of care including admission/observation considered Consult Healthcare Provider Management of the patient was discussed with: Net Application Support Specialist (Attending: lyn whitney ) Lab Data [facility] Lab Attestation statement: I reviewed the patient's lab results. 07/10/25 14:09 07/10/25 14:09 Labs: Lab Results 07/10/25 Range/Units 14:09 WBC 13.3 H (4.8-10.8) X10*3/uL RBC 3.91 L (4.20-5.50) X10*6/uL Hgb 12.6 (12.0-16.0) g/dl Hct 35.4 L (37.0-47.0) % MCV 90.5 (80.0-98.0) fL MCH 32.2 (27.0-33.0) pg MCHC 35.6 H (31.0-35.0) g/dl RDW 12.7 (11.0-16.0) % Plt Count 224 (160-400) X10*3/uL MPV 9.2 L (9.4-12.3) fL Immature Gran % (Auto) 0.4 (0.0-0.4) % Neut % (Auto) 75.4 H (45-73) % Lymph % (Auto) 17.4 L (20-40) % Starr % (Auto) 6.4 (2-11) % Eos % (Auto) 0.2 (0-4) % Baso % (Auto) 0.2 (0-2) % Lymph # (Auto) 2.3 (1.2-4.9) X10*3/uL Starr # (Auto) 0.9 (0.1-1.2) X10*3/uL Eos # (Auto) 0.0 (0.0-0.4) X10*3/uL Baso # (Auto) 0.0 (0.0-0.2) X10*3/uL Abs Immat Gran (auto) 0.05 H (0.00-0.03) X10*3/uL Absolute Neuts (auto) 10.1 H (2.0-8.3) x10*3/uL Absolute Nucleated RBC 0.000 (0.0-0.012) X10*3/uL Nucleated RBC % (auto) 0.0 (0.0-0.2) /100WBC Sodium 139 (135-145) mmol/L Potassium 3.3 (3.3-5.1) mmol/L Chloride 101 (96-108) mmol/L Carbon Dioxide 27 (22-29) mmol/L Anion Gap 14 (12-20) BUN 11 (9-16) mg/dL Creatinine 0.69 (0.5-1.4) mg/dL Estim Creat Clear Calc 91.6 Estimated GFR > 60 Random Glucose 93 (60-115) mg/dL Lactic Acid 0.7 (0.5-2.0) mmol/L Calcium 9.5 (8.4-10.2) mg/dL Magnesium 2.1 (1.6-2.6) mg/dL Total Bilirubin 0.4 (0.0-1.0) mg/dL AST 19 (5-31) U/L ALT 13 (0-31) U/L Alkaline Phosphatase 89 (39-117) U/L Total Protein 7.3 (6.5-8.0) g/dL Albumin 4.3 (3.5-5.0) g/dL Beta HCG, Quant 5 mIU/mL Independent Interpretation I performed an independent interpretation of an: Ultrasound (IMPRESSION: 1. No current evidence of intrauterine gestation. This may be secondary to early normal , failed or early ectopic . Recommend correlation with quantitative beta HCG and ultrasound follow-up as indicated. 2. Nonvisualization of the left ovary.) Radiology Impression Discussion of test interpretation with radiology: I have reviewed the radiologist's reading. External Record Review External record reviewed: Inpatient record, Office record, Outpatient record, Prior outpatient labs, Prior outpatient radiology, Primary care record and Outside ED record Prescription Management I considered prescription management with: Antibiotic (will be sent ) Chronic Conditions Patient?s care impacted by: Other (anxiety, depression, compression of brain ) Critical Care Time Critical Care Time Critical Care Time: No Discharge Plan Discharge Clinical Impression: Abscess, Other specified noninflammatory disorders of vulva and perineum, Elevated serum hCG Patient Disposition: Home, Self-Care Instructions: Abscess (ED), Sitz Bath (DC) Additional Instructions: Take your medications as prescribed. If you were prescribed antibiotics today, it is important that you take your medication to their entirety, do not skip any doses, do not finish them early. Follow-up with your primary care provider this week. Return to the emergency department with new or worsening symptoms. Such as fevers, chills, chest pain, shortness of breath, nausea, vomiting, dizziness, headache, vision changes, lethargy In case of emergency call 911 Your hCG is very low it is 5 unclear if you are actually . Follow up with OBGYN in 48 hours for repeat HCG test. Return if vaginal bleeding, abd or vaginal pain or discharge. Please follow Sitz bath instructions. Take your antibiotics as prescribed Return if fevers, chills, discharge from site. US pelvic/ OB IMPRESSION: 1. No current evidence of intrauterine gestation. This may be secondary to early normal , failed or early ectopic . Recommend correlation with quantitative beta HCG and ultrasound follow-up as indicated. 2. Nonvisualization of the left ovary. Prescriptions: New cephalexin 500 mg tablet 500 mg PO Q6H 7 Days Qty: 28 0RF No Action ibuprofen 800 mg tablet 800 mg PO TID tizanidine 4 mg tablet 4 mg PO TID cholecalciferol (vitamin D3) [Vitamin D3] 25 mcg (1,000 unit) capsule 25 mcg PO DAILY clonazepam [Klonopin] 2 mg tablet 2 mg PO BID acetaminophen 325 mg tablet 325 mg PO Q4H PRN fluoxetine 20 mg capsule 20 mg PO DAILY mirtazapine 30 mg tablet 30 mg PO BEDTIME Vitamin 27 mg iron- 800 mcg tablet 1 tab PO DAILY Referrals: Anh Lujan MD [Primary Care Provider, Family Practice] Stand Alone Forms: Work/School Release Print Language: Maltese
[2025-07-10 14:15] LABS: MANUAL DIFF FLAG NO
[2025-07-10 14:17] LABS: Hematocrit 35.4 % (37.0-47.0); Hemoglobin 12.6 g/dl (12.0-16.0); Imm Gran Abs Auto 0.05 X10*3/uL (0.00-0.03); Imm Gran Pct Auto 0.4 % (0.0-0.4); Lymphocytes Absolute Auto 2.3 X10*3/uL (1.2-4.9); Mean Corpuscular HGB Conc 35.6 g/dl (31.0-35.0); Mean Corpuscular Hemoglobin 32.2 pg (27.0-33.0); Mean Corpuscular Volume 90.5 fL (80.0-98.0); NRBC Abs Auto 0.000 X10*3/uL (0.0-0.012); NRBC Pct Auto 0.0 /100WBC (0.0-0.2); Platelet Count 224 X10*3/uL (160-400); Red Blood Count 3.91 X10*6/uL (4.20-5.50); White Blood Count 13.3 X10*3/uL (4.8-10.8)
[2025-07-10 14:29] VITALS: BP 104/58; PULSE 87; RESP 18; O2SAT 97
[2025-07-10 14:38] LABS: Alanine Aminotransferase 13 U/L (0-31); Albumin Level 4.3 g/dL (3.5-5.0); Alkaline Phosphatase 89 U/L (39-117); Anion Gap 14 (12-20); Aspartate Amino Transferase 19 U/L (5-31); Blood Urea Nitrogen 11 mg/dL (9-16); Calcium 9.5 mg/dL (8.4-10.2); Carbon Dioxide 27 mmol/L (22-29); Chloride 101 mmol/L (96-108); Creatinine Clr Calc Pharmacy 91.6; Estimated Glomerular Filt Rate > 60; Magnesium 2.1 mg/dL (1.6-2.6); Potassium 3.3 mmol/L (3.3-5.1); Sodium 139 mmol/L (135-145); Total Protein 7.3 g/dL (6.5-8.0)
[2025-07-10 16:21] VITALS: BP 111/66; PULSE 81; RESP 16; O2SAT 98
[2025-07-10 17:22] VITALS: BP 111/66; PULSE 81; RESP 16; TEMP 37; O2SAT 98
== END 2025-07-10 17:22 | disposition home or self-care (01) ==
PROVIDERS: Physician Assistant; Emergency Provider Emergency Medicine; PCP Family Medicine
DX: O99.719 Diseases of the skin and subcutaneous tissue complicating pregnancy, unspecified trimester (principal); N76.4 Abscess of vulva; R87.1 Abnormal level of hormones in specimens from female genital organs; Z79.899 Other long term (current) drug therapy
CPT/HCPCS: 36415; 76801; 76817; 80053; 83605; 83735; 84702; 85025; 87040; 99284

== ENCOUNTER → 2025-07-10 14:04 | Outpatient (BNV) | payer MEDICARE, MEDICAID, SELFPAY | PROVIDERS: Emergency Provider Emergency Medicine; PCP Family Medicine; Visit Provider Radiology Diagnostic Radiology | DX: O34.61 Maternal care for abnormality of vagina, first trimester (principal); R10.2 Pelvic and perineal pain; Z3A.00 Weeks of gestation of pregnancy not specified | CPT/HCPCS: 76801; 76817 ==

== ENCOUNTER 2025-08-29 12:09 | Outpatient (REF) | payer MEDICARE, MEDICAID, SELFPAY ==
--- OUTSIDE RECORDS SUMMARY | 2025-08-29 12:13 | XMS_ITS | Clinical Summary ---
Author Organization [employer] Address [address] [facility] [address] [place] [address] Care Team Providers Care Beauty Sales Advisor Name Role Phone Anh Lujan MD Primary Care Provider [phone] Marco Hyman MD Unavailable Jan Escalona MD Unavailable Allergies Active Allergy Reactions Criticality Noted Date Comments Baclofen 04/05/2016 Cyclobenzaprine 04/05/2016 Diazepam Hallucinations 10/22/2018 Egg Protein (Egg White) 02/20/2023 Lorazepam Hallucinations 10/22/2018 Naproxen Nausea Only [...] bedtime. Active DULoxetine (Cymbalta) [address] Aguilar ns:Recurrent major depressive episodes, mild (CMS/HCC) Take 30 mg by mouth 2 times daily. Do not crush or chew. Active amitriptyline (Elavil) 100 MG tabletIndication s:Fibromyalgia Take 100 mg by mouth at bedtime. Active acetaminophen-co deine (Tylenol w/ Codeine #4) 300-60 MG tabletIndication s:Chronic back pain, unspecified back location, unspecified back pain laterality Take by mouth. One tab po at bedtime prn Active tiZANidine (Zanaflex) 4 MG tabletIndication s:Fibromyalgia TAKE 1 TABLET BY MOUTH IN THE MORNING AND AT BEDTIME NEEDED FOR MUSCLE SPASMS 60 tablet 2 5 Active ibuprofen 800 MG tabletIndication s:Fibromyalgia TAKE 1 TABLET BY MOUTH THREE TIMES DAILY WITH FOOD OR MILK NEEDED 30 tablet 2 5 Active Vit-Fe Fumarate-FA ( Vitamins) 28-0.8 MG tabletIndication s:Vitamin deficiency Take 1 tablet by mouth Once per day. 90 tablet 5 Active Active Problems Problem Noted Date Diagnosed Date Cervicogenic headache 07/01/2025 Amenorrhea 07/01/2025 Assessment & Plan (07/01/2025 3:13 PM EDT): Phone call into midwives as pt has visit today. 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 Pt denies abdominal symptoms but does endorses breast tenderness and nausea. Office visit limited due to timing. 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 -referred to Plastic Surgery 02/21/25 Assessment & Plan (02/21/2025 4:38 PM EDT): Chronic. -referred to Plastic Surgery 02/21/25 Elevated LDL cholesterol level 02/21/2025 Overview (02/21/2025): Lab Results Component Value Date CHOL 161 01/16/2024 TRIG 53 01/16/2024 HDL 45 01/16/2024 LDLCHOLCAL 106 (H) 01/16/2024 -continue lifestyle modification -ordered repeat HFP and FLP 02/21/25 Assessment & Plan (02/21/2025 4:37 PM EDT): Lab Results Component Value Date CHOL 161 01/16/2024 TRIG 53 01/16/2024 HDL 45 01/16/2024 LDLCHOLCAL 106 (H) 01/16/2024 -continue lifestyle modification -ordered repeat HFP and FLP 02/21/25 Bilateral hand numbness 11/29/2024 Overview (11/29/2024): - Referred to Rheumatology 11/29/24 Assessment & Plan (11/29/2024 12:32 PM EST): - Referred to Rheumatology 11/29/24 Chronic back pain 11/29/2024 Overview (02/21/2025): - Prescribed acetaminophen-codeine (Tylenol w/ Codeine #4) 300-60 MG tablet 11/29/24 - Referred to Rheumatology 11/29/24 - MRI 02/18/25 MR/MR lumbar spine wo con IMPRESSION: Spondylosis at L4-5 and L5-S1 encroaching the neural elements of the thecal sac and the exiting nerve roots. -Referred to [facility] 02/21/25 Assessment & Plan (02/21/2025 4:34 PM EDT): - Prescribed acetaminophen-codeine (Tylenol w/ Codeine #4) 300-60 MG tablet 11/29/24 - Referred to Rheumatology 11/29/24 - MRI 02/18/25 MR/MR lumbar spine wo con IMPRESSION: Spondylosis at L4-5 and L5-S1 encroaching the neural elements of the thecal sac and the exiting nerve roots. -Referred to [facility] 02/21/25 Assessment & Plan (11/29/2024 12:35 PM EST): - Prescribed acetaminophen-codeine (Tylenol w/ Codeine #4) 300-60 MG tablet 11/29/24 - Referred to Rheumatology 11/29/24 Chronic prescription benzodiazepine use 11/15/20 Overview (02/20/2025): Prescribed by Sonal Avilez Chronic prescription opiate use 11/15/2024 Overview (02/20/2025): Prescribed by Adriana Mejia NP Subclinical hyperthyroidism 01/15/2024 Overview (02/21/2025): Lab Results Component Value Date TSH 0.44 01/16/2024 -ordered repeat TSH 02/21/25 Assessment & Plan (02/21/2025 4:33 PM EDT): Lab Results Component Value Date TSH 0.44 01/16/2024 -ordered repeat TSH 02/21/25 Colon cancer screening 12/24/2023 Overview (11/29/2024): -due for colon cancer screening. Telephone outreach done week of 12/24/23 to see if pt agreeable to referral - Referral made to GI for colon cancer screeening 01/15/24 - Colonoscopy results were normal. Completed on 11/24/[address] Nguyen in [facility] 11/29/24 Assessment & Plan (02/21/2025 4:34 PM EDT): -due for colon cancer screening. Telephone outreach done week of 12/24/23 to see if pt agreeable to referral - Referral made to GI for colon cancer screeening 01/15/24 - Colonoscopy results were normal. Completed on 11/24/[address] Nguyen in [facility] 11/29/24 Assessment & Plan (11/29/2024 10:04 AM EST): -due for colon cancer screening. Telephone outreach done week of 12/24/23 to see if pt agreeable to referral - Referral made to GI for colon cancer screeening 01/15/24 - Colonoscopy results were normal. Completed on 11/24/[address] Nguyen in [facility] 11/29/24 Assessment & Plan (01/15/2024 9:51 AM EST): -due for colon cancer screening. Telephone outreach done week of 12/24/23 to see if pt agreeable to referral - Referral made to GI for colon cancer screeening 01/15/24 Other specified health status 09/25/2023 Overview (02/21/2025): -next comprehensive annual evaluation due after 02/21/26 -eye care facilitated by [facility] -dental home is [facility] -Health care proxy paperwork completed by the patient 01/15/24 Assessment & Plan (02/21/2025 4:33 PM EDT): -next comprehensive annual evaluation due after 02/21/26 -eye care facilitated by [facility] -dental home is [facility] -Health care proxy paperwork completed by the patient 01/15/24 Assessment & Plan (01/15/2024 10:11 AM EST): -next physical exam due after 01/15/24 -eye care facilitated by [facility] -dental home is [facility] - Health care proxy paperwork completed by the patient 01/15/24 Irregular menstrual cycle 02/20/2023 Overview (02/21/2025): After starting Provera patient had withdrawal bleed [...] labs including ESR and RENE were negative. -Sports Marketing Specialist feels its due to age related menorrhea. -ordered CBC 02/21/25 Assessment & Plan (02/21/2025 4:32 PM EDT): After starting Provera patient had withdrawal [...] labs including ESR and RENE were negative. -Sports Marketing Specialist feels its due to age related menorrhea. -ordered CBC 02/21/25 Assessment & Plan (01/16/2024 11:55 AM EST): [...] labs including ESR and RENE were negative. -Sports Marketing Specialist feels its due to age related menorrhea. [...] labs including ESR and RENE were negative. -Sports Marketing Specialist feels its due to age related menorrhea. Fibromyalgia 02/20/2023 Overview (02/21/2025): Pt with fibromyalgia complicated by poor mental health currenlty much better with therapist, psychiatrist and emergency care tech. On multiple occasions we discussed and she was given information in [place] for her to review on fibromyalgia. She [...] tablet 11/29/24 - Referred to Rheumatology 11/29/24 -she is interested in pain group referral 02/21/25 -she is going to try paraffin at home. Assessment & Plan (02/21/2025 4:31 PM EDT): Pt with fibromyalgia complicated by poor mental health currenlty much better with therapist, psychiatrist and emergency care tech. On multiple occasions we discussed and she was given information in [place] for her to review on fibromyalgia. She [...] tablet 11/29/24 - Referred to Rheumatology 11/29/24 -she is interested in pain group referral 02/21/25 -she is going to try paraffin at home. Assessment & Plan (11/29/2024 12:35 PM EST): Pt with fibromyalgia complicated by poor mental health currenlty much better with therapist, psychiatrist and emergency care tech. On multiple occasions we discussed and she was given information in [place] for her to review on fibromyalgia. She [...] currenlty much better with therapist, psychiatrist and emergency care tech. On multiple occasions we discussed and she was given information in [place] for her to review on fibromyalgia. She [...] currenlty much better with therapist, psychiatrist and emergency care tech. On multiple occasions we discussed and she was given information in [place] for her to review on fibromyalgia. She [...] is taking 08/2020 Nicotine dependence 01/03/2022 Overview (02/21/2025): -Cigg/day: 5 cigarettes/day -Age started: 16 -Total years smokin -Pack year history: 20 Encouraged smoking cessation resources such as pharmacomtherapy, [facility] smoking cessation group, and [facility] pharmacy smoking cessation clinic Discussed USPSTF recommends [...] Collaborative Drug Therapy Managment Program with our YAZAN Yarbrough 11/29/24 Assessment & Plan (02/21/2025 4:34 PM EDT): -Cigg/day: 5 cigarettes/day -Age started: 16 -Total years smokin -Pack year history: 20 Encouraged smoking cessation resources such as pharmacomtherapy, [facility] smoking cessation group, and [facility] pharmacy smoking cessation clinic Discussed USPSTF recommends [...] Collaborative Drug Therapy Managment Program with our YAZAN Yarbrough 11/29/24 Assessment & Plan (11/29/2024 12:29 PM EST): -Cigg/day: 5 cigarettes/day -Age started: 16 -Total years smokin -Pack year history: Encouraged smoking cessation resources such as pharmacomtherapy, [facility] smoking cessation group, and [facility] pharmacy smoking cessation clinic Discussed USPSTF recommends [...] Collaborative Drug Therapy Managment Program with our YAZAN Yarbrough 11/29/24 Assessment & Plan (01/15/2024 10:01 AM EST): -Cigg/day: 5 -Age started: 16 -Total years smokin -Pack year history: Encouraged smoking cessation resources such as pharmacomtherapy, [facility] smoking cessation group, and [facility] pharmacy smoking cessation clinic Discussed USPSTF recommends [...] Recurrent major depressive episodes, mild 2021 Overview (02/21/2025): Continue with therapist and psychiatrist. No MANDEEP.therapist and psychiatrist. No MANDEEP. - Prescribed mirtazapine (Remeron) 45 MG tablet 11/29/24 - Prescribed DULoxetine (Cymbalta) [address] capsule 11/29/24 Assessment & Plan (02/21/2025 4:33 PM EDT): Continue with therapist and psychiatrist. No MANDEEP.therapist [...] Encounters Date Type Department Care Team Description 08/29/2025 Telephone [facility] [address] [place] [phone] Anh Lujan MD 08/26/2025 Telephone [facility] [address] [place] [phone] Anh Lujan MD Lab Orders 07/10/2025 Orders Only GENERIC EXTERNAL DATA DEPARTMENT Provider, Generic External Data 07/01/2025 2:00 PM EDT Office Visit [facility] [address] [place] [phone] Christine Boyd NP Cervicogenic headache (Primary Dx); Amenorrhea 07/01/2025 Travel 06/29/2025 Results Follow-Up [facility] [address] [place] [address] [phone] Suman Solis CNP hCG, Total, Quantitative 06/27/2025 1:20 PM EDT Office Visit [facility] [address] [address] Name, MD Robert Irregular menstrual cycle; Vitamin deficiency; Pelvic and perineal pain 06/27/2025 Travel from Last 3 Months Immunizations Immunization Administration Dates Next Due DTaP 04/14/2014 Hep [...] History Relation Name Comments Cerebral palsy Daughter Yolianne Breast cancer Mother Diabetes Mother Relation Name Status Comments Daughter Yolianne Alive Mother Social History Tobacco Use Types [...] your housing situation today? I have oriana merry 11/18/[address] you li [...] Access Q2 Not on file 11/18/2024 Comments No Intention Date Recorded No desire to become (finding) 0 02/21/2025 Sex and Gender Information Value Date Recorded Sex Assigned at Female 09/16/2022 10:18 AM EDT Legal Sex Female 10:18 AM EDT Gender Identity Female 09/16/2022 10:18 AM EDT Sexual Orientation Choose not to disclose 2021 10:18 AM EDT Last Filed Vital Signs Vital Sign Reading Time Taken Comments Blood Pressure 149/89 07/01/2025 2:08 PM EDT no chest pain, palpitations, or SOB Pulse 85 07/01/2025 2:08 PM EDT Temperature 36.4 C (97.5 F) 07/01/2025 2:08 PM EDT Respiratory Rate 20 07/01/2025 2:08 PM EDT Oxygen Saturation 99% 07/01/2025 2:0 8 PM EDT Inhaled Oxygen Concentration - - Weight 60.7 kg (133 lb 12.8 oz) 07/01/2025 2:08 PM EDT Height 165.1 cm (5' 5 ) 07/01/2025 2:08 PM EDT Body Mass Index 22.27 07/01/2025 2:08 PM EDT Plan of Treatment Upcoming Encounters Date Type Department Care Team (Late st Contact Info) Description 10/06/2025 9:15 AM EST Office Visit [facility] [address] [place] [address] Anh Lujan MD [address] [place] [address] Health Maintenance Due Date Last Done Comments CT Colonography 1978 FIT DNA/Cologuard 1978 FIT 1978 FOBT 1980 Sigmoidoscopy 1980 COVID-19 Vaccine (2024- season) 2025 02/21/2023, 11/12/2021, 02/07/2021 Influenza Vaccine (#1) 2025 , 10/02/2023, 02/21/2023, Additional history exists Alcohol/Substance Use Screening 11/29/2025 11/29/2024 Depression Screening 11/29/2025 11/29/2024, 11/29/19 25 SDOH Screening 11/29/2025 11/29/2024 Disability Screening 02/21/2026 02/21/2025 Family Planning (PISQ) 02/21/2026 02/21/2025 Tobacco Screening 07/01/2026 07/01/2025 Mammogram 08/28/2026 08/28/2024, 07/18, 08/20/2022, Additional history exists Cervical Cancer Screening 07/09/2027 HPV/Cotest 07/09/2027 07/09/2022, 0801/2022, 07/09/2022 Pap Smear 07/09/2027 07/09/2022, 08/28/2021 Zoster Vaccines (1 of 2) 2028 Lipid Panel 06/27/2030 06/27/2025, 03/0 11/2023, 01/28/2022 Colonoscopy 11/24/2034 11/24/2024 Colorectal Cancer Screening 11/24/2034 DTaP/Tdap/Td Vaccines (4 - Td or Tdap) 11/29/2034 11/29/2024, 07/06/2014, 04/14/2014, Additional history exists RSV Patients and Patients Aged 60 years or older (1 - 1-dose 75+ series) 2053 Hepatitis C Screening Completed 01/15/2016 Pneumococcal Vaccine: Pediatrics (0 to 5 Years) and At-Risk Patients (6 to 49) Years Completed 01/15/2024 Hepatitis A Vaccines Aged Out 11/29/2024 No long er eligible based on patient's age to complete this topic Hepatitis B Vaccines Completed 11/29/2024, 01/15/2024, 02/21/2023 HIV Screening Completed 06/27/2025, 01/28/2022 HIB Vaccines Aged Out No longer eligi ble based on patient's age to complete this topic HPV Vaccines Aged Out No longer eligi ble based on patient's age to complete this topic IPV Vaccines Aged Out No longer eligi ble based on patient's age to complete this topic Meningococcal B Vaccine Aged Out No l onger eligible based on patient's age to complete [...] Procedure Name Priority Date/Time Associated Diagnosis Comments US OB PELVIS TRANSVAGINAL Routine 07/10/2025 5:01 PM EDT BLOOD CULTURE (FIRST) Routine 07/10/2025 2:10 PM EDT HCG, TOTAL, QN Routine 07/10/2025 2:09 PM EDT MAGNESIUM Routine 07/10/2025 2:09 PM EDT COMPREHENSIVE METABOLIC PANEL Routine 07/10/2025 2:09 PM EDT LACTIC ACID Routine 07/10/2025 2:09 PM EDT CBC WITH AUTO DIFFERENTIAL Routine 07/10/2025 2:09 PM EDT BLOOD CULTURE (SECOND) Routine 07/10/2025 2:08 PM EDT HCG, TOTAL, QN Routine 06/27/2025 1:48 PM EDT Irregular menstrual cycle Pelvic and perineal pain SYPHILIS SCREEN Routine 06/27/2025 1:48 PM EDT Routine screening for STI (sexually transmitted infection) HIV 1/2 ANTIGEN/ANTIBODY, FOURTH GENERATION W/RFL Routine 06/27/2025 1:48 PM EDT Routine screening for STI (sexually transmitted infection) VITAMIN D,25-OH,TOTAL,IA Routine 06/27/2025 1:48 PM EDT Vitamin D deficiency CBC WITH AUTO DIFFERENTIAL Routine 06/27/2025 1:48 PM EDT Irregular menstrual cycle TSH W/REFLEX TO FT4 Routine 06/27/2025 1 :48 PM EDT Subclinical hyperthyroidism BASIC METABOLIC PANEL Routine 06/27/2025 1:48 PM EDT Recurrent major depressive episodes, mild (CMS/HCC) LIPID PANEL, STANDARD Routine 06/27/2025 1:48 PM EDT Elevated LDL cholesterol level HEPATIC FUNCTION PANEL Routine 06/27/2025 1:48 PM EDT Elevated LDL cholesterol level POCT , URINE Routine 06/27/2025 1:14 PM EDT Irregular menstrual cycle HM COLONOSCOPY Routine 11/24/2024 BI MAMMOGRAM SCREENING TOMOSYNTHESIS BILATERAL Routine 08/28/2024 8:46 AM EDT HM PAP/HPV Routine 07/09/2022 HEPATITIS C AB W/REFL TO HCV RNA, QN, PCR Routine 01/15/2016 from Last 3 Months or Most Recently Relevant to Health Maintenance Results * US OB Pelvis with Transvaginal (07/10/2025 5:01 PM EDT) Anatomical Region Laterality Modality Pelvis Ultrasound 07/10/2025 5:01 PM EDT Narrative 07/10/2025 5:03 PM EDT [address] [address] Ultrasound Report Signed Patient: Harriet Olsen MR#: [id number] 97 : 1980 Acct:[id number] Age/Sex: 44 / F ADM Date: 07/10/25 Loc: HO.ED Attending Dr: Ordering Physician: Jakob Stephens Date of Service: 07/10/25 Procedure(s): US OB pelvic and transvaginal Accession Number(s): [id number] cc: Anh Lujan MD; Jakob Stephens CLINICAL HISTORY: + preg lower abd rule out ectopic US pelvis transabdominal and transvaginal Comparison: US/NC/SR - US PELVIS TRANSABDOMINAL AND TRANSVAGINAL - 03/20/23 11:25 EDT Findings: Transabdominal scanning performed for overall anatomy. Transvaginal scanning performed for additional detail. There is no current evidence of intrauterine gestation. Anteverted uterus is 6.3 cm length. Normal myometrium. Endometrium 4 mm thickness. No lesions. Right ovary 2.3 x 1.6 x 1.9 cm. Left ovary not visualized Normal color Doppler of both ovaries. No free fluid. IMPRESSION: 1. No current evidence of intrauterine gestation. This may be secondary to early normal , failed or early ectopic . Recommend correlation with quantitative beta HCG and ultrasound follow-up as indicated. 2. Nonvisualization of the left ovary. This document has been electronically signed by: Mary Lou Iyer MD on 07/10/2025 17:01:39 Dictated By: Mary Lou Iyer MD Signed By: <Electronically signed by Mary Lou Iyer MD in OV> 07/10/251701 DD/ 00 TD/TT: 07/10/251700 Customer Success Intern: Procedure Note Donotuseinterpreter, Image - 07/10/[address] [address] Ultrasound Report Signed Patient: Johnathan Olsen#: [id number] [birth year] : 1980Acct:[id number] Age/Sex: 44 / FADM Date: 07/10/25 Loc: HO.ED Attending Dr: Ordering Physician: Jakob Stephens Date of Service: 07/10/25 Procedure(s): US OB pelvic and transvaginal Accession Number(s): [id number] cc: Anh Lujan MD; Jakob Stephens CLINICAL HISTORY: + preg lower abd rule out ectopic US pelvis transabdominal and transvaginal Comparison: US/NC/SR - US PELVIS TRANSABDOMINAL AND TRANSVAGINAL - 03/20/23 11:25 EDT Findings: Transabdominal scanning performed for overall anatomy. Transvaginal scanning performed for additional detail. There is no current evidence of intrauterine gestation. Anteverted uterus is 6.3 cm length. Normal myometrium. Endometrium 4 mm thickness. No lesions. Right ovary 2.3 x 1.6 x 1.9 cm. Left ovary not visualized Normal color Doppler of both ovaries. No free fluid. IMPRESSION: 1. No current evidence of intrauterine gestation. This may be secondary to early normal , failed or early ectopic . Recommend correlation with quantitative beta HCG and ultrasound follow-up as indicated. 2. Nonvisualization of the left ovary. This document has been electronically signed by: Mayr Lou Iyer MD on 07/10/2025 17:01:39 Dictated By: Mary Lou Iyer MD Signed By: <Electronically signed by Mary Lou Iyer MD in OV> 07/10/25 1702 DD/ 1701 TD/TT: 07/10/25 1701 Customer Success Intern: us [facility] External Provider IMG US PROCEDURES Edited Result - Final * Blood Culture (First) (07/10/2025 2:10 PM EDT) Blood Venous blood specimen / Unknown 07/10/2025 2:10 PM EDT 07/10/2025 2:14 PM EDT Comment:Blood Narrative [facility] - 07/15/2025 4:14 PM EDT Blood Culture (First) No growth after 5 days. Specimen Source: Blood us Generic External Data Provider LAB MICROBIOLOGY - GENERAL ORDERABLES Final Result [facility] [address] [place] [phone] * (ABNORMAL) CBC auto differential (07/10/2025 2:09 PM EDT) Only the most recent of2 resultswithin the time period is included. White Blood Count 13.3(H) 4.8 - 10.8 X10*3/uL [facility] Red Blood Count 3.91(L) 4.20 - 5.50 X10*6/uL [facility] Hemoglobin 12.6 12.0 - 16.0 g/dl [facility] Hematocrit 35.4(L) 37.0 - 47.0 % [facility] Mean Corpuscular Volume 90.5 80.0 - 98.0 fL [facility] Mean Corpuscular Hemoglobin 32.2 27.0 - 33.0 pg [facility] Mean Corpuscular HGB Conc 35.6(H) 31.0 - 35.0 g/dl [facility] Red Cell Distribution Width 12.7 11.0 - 16.0 % [facility] Platelet Count 224 160 - 400 X10*3/uL [facility] Mean Platelet Volume 9.2(L) 9.4 - 12.3 fL [facility] Neutrophils Percent Auto 75.4(H) 45 - 73 % [facility] Imm Gran Pct Auto 0.4 0.0 - 0.4 % [facility] Lymphocytes Percent Auto 17.4(L) 20 - 40 % [facility] Monocytes Percent Auto 6.4 2 - 11 % [facility] Eosinophils Percent Auto 0.2 0 - 4 % [facility] Basophils Percent Auto 0.2 0 - 2 % [facility] NRBC Pct Auto 0.0 0.0 - 0.2 /100WBC [facility] Neutrophils Absolute Auto 10.1(H) 2.0 - 8.3 x10*3/uL [facility] Imm Gran Abs Auto 0.05(H) 0.00 - 0.03 X10*3/uL [facility] Lymphocytes Absolute Auto 2.3 1.2 - 4.9 X10*3/uL [facility] Monocytes Absolute Auto 0.9 0.1 - 1.2 X10*3/uL [facility] Eosinophils Absolute Auto 0.0 0.0 - 0.4 X10*3/uL [facility] Basophils Absolute Auto 0.0 0.0 - 0.2 X10*3/uL [facility] NRBC Abs Auto 0.000 0.0 - 0.012 X10*3/uL [facility] 07/10/2025 2:09 PM EDT 07/10/2025 2:14 PM EDT us Generic External Data Provider LAB BLOOD ORDERAB LES Final Result [facility] [address] [place] [phone] * hCG, Total, Quantitative (07/10/2025 2:09 PM EDT) Only the most recent of2 resultswithin the time period is included. HCG Quantitative 5 mIU/mL [facility] Comment:Weeks post LMP Appro ximate hCG(Last Menstrual Period) Range (mIU/ml)3 - 4 weeks 9 - 1304 - 5 weeks 75 - 2,6005 - 6 weeks 850 - 20,8006 - 7 weeks 4000 - 100,2007 - 12 weeks 11,500 - 289,42441 - 16 weeks 18,300 - 137,05013 - 29 weeks (2nd trimester) 1,400 - 53,83425 - 41 weeks (3rd trimester) 940 - 60,000The Gallardo B- hCG assay is used for the early detection ofpregnancy; it cannot be used to diagnose any conditionunrelated to . If a B-hCG level is not supportedby the clinical evidence, results should be confirmed by analternative method (qualitative urine hCG, for example). 07/10/2025 2:09 PM EDT 07/10/2025 2:14 PM EDT us Generic External Data Provider LAB BLOOD ORDERAB LES Final Result Performing Organization Address [facility] Co de Phone Number [facility] [address] [place] [phone] * Magnesium (07/10/2025 2:09 PM EDT) Pathologist [facility] Magnesium 2.1 1.6 - 2.6 mg/dL [facility] 07/10/2025 2:09 PM EDT 07/10/2025 2:14 PM EDT Generic External Data Provider LAB BLOOD ORDERAB LES Final Result Performing Organization Address [facility] Phone Number [facility] [address] [place] [phone] * Lactic Acid (07/10/2025 2:09 PM EDT) Pathologist [facility] Lactic Acid 0.7 0.5 - 2.0 mmol/L [facility] 07/10/2025 2:09 PM EDT 07/10/2025 2:14 PM EDT Generic External Data Provider LAB BLOOD ORDERAB LES Final Result Performing Organization Address [facility] de Phone Number [facility] [facility]S [address] [place] [phone] * Comprehensive Metabolic Panel (07/10/2025 2:09 PM EDT) Sodium 139 135 - 145 mmol/L [facility] Potassium 3.3 3.3 - 5.1 mmol/L [facility] Chloride 101 96 - 108 mmol/L [facility] Carbon Dioxide 27 22 - 29 mmol/L [facility] Anion Gap 14 12 - 20 [facility] Urea Nitrogen (BUN) 11 9 - 16 mg/dL [facility] Creatinine, Serum 0.69 0.5 - 1.4 mg/dL [facility] Creatinine Clr Calc Pharmacy 91.6 [facility] Comment:Provided height and weight: 165.1 cm,57.8 kg.eGFR (calculated from the MDRD study equation) and eCrCl(calculated from the Cockcroft-Gault equation) are based ondifferent parameters and may not yield comparable results.If eCrCl result is absurd, please check patient'sheight/weight. Estimated Glomerular Filt Rate >60 [facility] Comment:Chronic Kidney Disea se: Estimated GFR < 60 mL/min/1.74z0Dkvobh Kidney Disease: Estimated GFR < 15 mL/min/1.73m2 Glucose 93 60 - 115 mg/dL [facility] Calcium 9.5 8.4 - 10.2 mg/dL [facility] Bilirubin, Total 0.4 0.0 - 1.0 mg/dL [facility] Aspartate Amino Transferase 19 5 - 31 U/L [facility] Alanine Aminotransferase 13 0 - 31 U/L [facility] Total Protein 7.3 6.5 - 8.0 g/dL [facility] Albumin Level 4.3 3.5 - 5.0 g/dL [facility] Alkaline Phosphatase 89 39 - 117 U/L [facility] 07/10/2025 2:09 PM EDT 07/10/2025 2:14 PM EDT us Generic External Data Provider LAB BLOOD ORDERAB LES Final Result [facility] [address] [place] [phone] * Blood Culture (Second) (07/10/2025 2:08 PM EDT) Blood Venous blood specimen / Unknown 07/10/2025 2:08 PM EDT 07/10/2025 2:18 PM EDT Comment:Blood Narrative [facility] - 07/15/2025 4:18 PM EDT Blood Culture (Second) No growth after 5 days. Specimen Source: Blood us Generic External Data Provider LAB MICROBIOLOGY - GENERAL ORDERABLES Final Result [facility] [address] [place] [phone] * Syphilis Screen (06/27/2025 1:48 PM EDT) Syphilis Screen Nonreactive Nonreactive [facility] Blood Venous blood specimen / Unknown 06/27/2025 1:48 PM EDT 06/27/2025 4:04 PM EDT Anh Lujan MD LAB BLOOD ORDERABLES Final Result Performing Organization Address [facility] Co de Phone Number [facility] [address] [place] [phone] * Vitamin D, 25-Hydroxy, Total, Immunoassay (06/27/2025 1:48 PM EDT) Pathologist [facility] Vitamin D 25-OH Total 37.4 >30 ng/mL [facility] Comment: Health Based Reference Values*< 20 ng/mL Heoecfdqm59-00 ng/mL Insufficient> 30 ng/mL Sufficient*Laura POLLOCK. N Engl J Med. 2007;357:266-280There is no well-established upper level of normal vitamin Dlevels. Some laboratories use 50 ng/mL as an upper limit ofnormal. However, toxicity is patient-dependent and may occurat any level. Careful correlation with the patient'spresentation is necessary and, if there is concern forvitamin D toxicity, treatment should be consideredirrespective of the serum level.Care must be taken in interpreting Vitamin D results fromdifferent laboratories and methodologies. Published datademonstrated that results from patients undergoinghemodialysis may show a negative bias when tested withvarious automated 25-OH vitamin D assays when compared toLC-MS/MS.When testing samples from patients whose predominant form ofVitamin D is Vitamin D2, such as patients receiving VitaminD2 supplementation, results that are subtherapeutic shouldbe confirmed with another method such as LC-MS/MS. Blood 06/27/2025 1:4 8 PM EDT 06/27/2025 4:04 PM EDT Anh Lujan MD LAB BLOOD ORDERABLES Final Result Performing Organization Address [facility] Co de Phone Number [facility] [address] [place] [phone] * TSH with Reflex to Free T4 (06/27/2025 1:48 PM EDT) TSH reflex Free T4 0.74 0.32 - 4.0 uIU/mL [facility] Blood 06/27/2025 1:48 PM EDT 06/27/2025 4:04 PM EDT Anh Lujan MD LAB BLOOD ORDERABLES Final Result Performing Organization Address [facility] de Phone Number [facility] [address] [place] [phone] * HIV-1/2 Antigen and Antibodies, Fourth Generation, with Reflexes (06/27/2025 1:48 PM EDT) Pathologist [facility] HIV AB/AG Nonreactive Nonreactive [facility] Comment:HIV-1 p24 Ag and/or HIV-1/HIV-2 Ab not detected.A test result that is nonreactive does not exclude thepossibility of exposure to or infection with HIV-1 and/orHIV-2. Nonreactive results in this assay for individualswith prior exposure to HIV-1 and/or HIV-2 may be due toantigen and antibody levels that are below the limit ofdetection of this assay.The [employer] HIV Ag/Ab Combo assay result andsupplemental assay results should be interpreted inconjunction with the patient's clinical presentation,history and other laboratory results. If the results areinconsistent with clinical evidence, additional testing issuggested to confirm the result. Blood Venous blood specimen / Unknown 06/27/2025 1:48 PM EDT 06/27/2025 4:04 PM EDT Anh Lujan MD LAB BLOOD ORDERABLES Final Result Performing Organization Address [facility] Co de Phone Number [facility] [address] [place] [phone] * (ABNORMAL) Hepatic Function Panel (06/27/2025 1:48 PM EDT) Bilirubin, Total 0.4 0.0 - 1.0 mg/dL [facility] Bilirubin, Direct 0.1 0.0 - 0.5 mg/dL [facility] Aspartate Amino Transferase 32(H) 5 - 31 U/L [facility] Alanine Aminotransferase 13 0 - 31 U/L [facility] Total Protein 7.2 6.5 - 8.0 g/dL [facility] Albumin Level 4.5 3.5 - 5.0 g/dL [facility] Alkaline Phosphatase 93 39 - 117 U/L [facility] Blood Venous blood specimen / Unknown 06/27/2025 1:48 PM EDT 06/27/2025 4:04 PM EDT Anh Lujan MD LAB BLOOD ORDERABLES Final Result Performing Organization Address [facility] Co mt Phone Number [facility] [address] [place] [phone] * Lipid Panel, Standard (06/27/2025 1:48 PM EDT) Triglycerides 143 <150 mg/dL [facility] Comment:Desirable Triglyceri de: less than 150 mg/dLBorderline High Triglyceride 150-199 mg/dLHigh Triglyceride: 200-499 mg/dLVery High Triglyceride: greater than or equal to 5OO mg/dL Cholesterol 174 <200 mg/dL [facility] Comment:Desirable Cholestero l: less than 200 mg/dLBorderline High Cholesterol: 200-239 mg/dLHigh Cholesterol: greater than 239 mg/dL LDL Cholesterol Calculated 99 <100 mg/dL [facility] Comment:Desirable LDL: less than 100 mg/dLNear Optimal/Above Optimal LDL: 110- 129 mg/dLBorderline High LDL: 130-159 mg/dLHigh LDL: 160-189 mg/dLVery High LDL: greater than or equal to 190 mg/dL HDL Cholesterol 47 >40 mg/dL [facility] Comment:Desirable HDL: great er than 40 mg/dL Note: This HDL assay may give artificially low results in patients with liver disease. Blood Venous blood specimen / Unknown 06/27/2025 1:48 PM EDT 06/27/2025 4:04 PM EDT Anh Lujan MD LAB BLOOD ORDERABLES Final Result [facility] [address] [place] [phone] * (ABNORMAL) Basic Metabolic Panel (06/27/2025 1:48 PM EDT) Sodium 142 135 - 145 mmol/L [facility] Potassium 3.6 3.3 - 5.1 mmol/L [facility] Chloride 107 96 - 108 mmol/L [facility] Carbon Dioxide 28 22 - 29 mmol/L [facility] Anion Gap 11(L) 12 - 20 [facility] Urea Nitrogen (BUN) 13 9 - 16 mg/dL [facility] Creatinine, Serum 0.66 0.5 - 1.4 mg/dL [facility] Estimated Glomerular Filt Rate >60 [facility] Comment:Chronic Kidney Disea se: Estimated GFR < 60 mL/min/1.28k2Fdfrlo Kidney Disease: Estimated GFR < 15 mL/min/1.73m2 Glucose 106 60 - 115 mg/dL [facility] Calcium 9.3 8.4 - 10.2 mg/dL [facility] Blood Venous blood specimen / Unknown 06/27/2025 1:48 PM EDT 06/27/2025 4:04 PM EDT Anh Lujan MD LAB BLOOD ORDERABLES Final Result [facility] [address] [place] [phone] * POCT Urine (06/27/2025 1:14 PM EDT) Preg Test, Ur Negative Negative, Indeterminate, None Detected, Invalid, Specimen unsatisfactory for evaluation, Weakly Positive, 2+ QC Media Lot # [id number] Lot# Expiration Date [id number] Urine 06/27/2025 1:14 PM EDT Robert Bhatia MD POINT OF CARE TEST ENTER/EDIT OR DERABLES Final Result * Hm Colonoscopy (11/24/2024) Colonoscopy Normal Normal Comment:with Dr. Marino Nguyen MD at [facility] Historical Provider HEALTH MAINTENANCE Final Result * BI Mammogram Screening Tomosynthesis Bilateral (08/28/2024 8:46 AM EDT) Anatomical Region Laterality Modality Breast Bilateral Mammography 08/28/2024 8:46 AM EDT Narrative 09/09/2024 10:04 PM EDT [address] [place] [address] Mammography Report Signed Patient: Harriet Olsen MR#: [id number] 97 : 1980 Acct:[id number] Age/Sex: 44 / F ADM Date: 08/28/24 Loc: HO.MAMMO Attending Dr: Anh Lujan MD Ordering Physician: Anh Lujan MD Results: 1N egative Date of Service: 08/28/24 Follow Up: 1 Year From Orig inal Mammogram Procedure(s): MM tomosynthesis screening BI Accession Number(s): [id number] cc: Anh Lujan MD EXAMINATION: MM SCREENING [...] Kanika Cardoza DO 09/09/2024 10:01 PM EDT Dictated By: Kanika Cardoza DO Signed By: <Electronically signed by Kanika Cardoza DO in OV> 09/09/242200 DD/ TD/TT: 08/28/24 0858 Customer Success Intern: Procedure Note Donotuseinterpreter, Image - [facility]/09/20[facility] [address] [place] [address] Mammography Report Signed Patient: Johnathan Olsen#: [id number] [birth year] : 1980Acct:[id number] Age/Sex: 44 / FADM Date: 08/28/24 Loc: HO.MAMMO Attending Dr: Anh Lujan MD Ordering Physician: Anh Lujan MDResults: 1N egative Date of Service: 08/28/24Follow Up: 1 Year From Orig inal Mammogram Procedure(s): MM tomosynthesis screening BI Accession Number(s): [id number] cc: Anh Lujan MD EXAMINATION: MM SCREENING [...] OV> 09/09/242200 DD/ 5 TD/TT: 08/28/24 0858 Customer Success Intern: Anh Lujan MD IMG BI PROCEDURES Edited R esult - Final * Hm Pap Smear (07/09/2022) Pap Negative for intraephithelial lesion or malignancy Negative for intraephithelial lesion or malignancy, Other HPV Undetected Historical Provider HEALTH MAINTENANCE Final Result * Hepatitis C Antibody with Reflex to HCV, RNA, Quantitative, Real-Time PCR (01/15/2016) Blood Venous blood specimen / Unknown 01/15/2016 Impressions Anh Lujan MD - 01/15/2016 3:29 PM EST negative Historical Provider LAB BLOOD ORDERABLES Odalys l Result from Last 3 Months or Most Recently Relevant to Health Maintenance Insurance MEDICARE [address] [id number] Advance Directives Documents on File Type Date Recorded Patient Ship'S Officer Expl anation Advance Directives and Living Will 11/29/2024 Health Care Proxy 11/29/24 Advance Directives and Living Will 01/15/2024 Health Care Proxy Care Teams Beauty Sales Advisor Relationship Specialty Start Date End Date [place], MD Anh [address] [place] [address] PCP - General Family Medicine 11/17/18 Marco Hyman MD [address] [place] [address] Rheumatology 11/15/24 Jan Escalona MD [address] [place] [address] Pain Medicine 11/15/24 Jorge L Jones MD [address] [place] [address] [address] [place] [address] Neurology 11/15/24 Sonal Avilez [address] [place] [address] Psychiatry 11/15/24 Dr. Marino Nguyen MD [address] [address] Gastroenterology 11/29/24
--- OUTSIDE RECORDS SUMMARY | 2025-08-29 12:13 | XMS_ITS | Encounter Summary ---
Author Organization [facility] Address [address] [place] [address] 7t [place] [address] Care Team Providers Care Car Parker Name Role Phone Anh Lujan MD Primary Care Provider +1- [phone] Marco Hyman MD Unavailable Jan Escalona MD Unavailable Encounter Details Date Type Department Care Team (Late st Contact Info) Description 08/20/2023 Abstract [facility] MEDICINE [address] [place] [address] [phone] Jennifer Álvarez Social History Tobacco Use Types [...] Description 10/06/2025 9:15 AM EST Office Visit [facility]INE [address] [place], [place] [phone] Anh Lujan MD [address] [place], [place] [phone] documented as of this encounter Procedures Procedure Name Priority Date/Time Associated Diagnosis Comments HM PAP/HPV Routine 07/09/2022 documented in this encounter Results * Hm Pap Smear (07/09/2022) Pap Negative for intraephithelial lesion or malignancy Negative for intraephithelial lesion or malignancy, Other HPV Undetected us Historical Provider HEALTH MAINTENANCE Final Result documented in this encounter Visit Diagnoses Not on filedocumented in this encounter Additional Health Concerns Assessment Noted Time PHQ-9 Depression Total Score: 0 02/22/20 23 9:38 AM EDT documented as of this encounter Care Teams Car Parker Relationship Specialty Start Date End Date Anh Lujan MD [address] [place] [address] PCP - General Family Medicine 11/17/18 Marco Hyman MD [address] [place] [address] Rheumatology 11/15/24 Jan Escalona MD [address] [place] [address] Pain Medicine 11/15/24 Jorge L Jones MD [address] [place] [address] Dr [address] [place] [address] Neurology 11/15/[address] [address] Psychiatry 11/15/24 Dr. Mairno Nguyen MD [address] [address] Gastroenterology 11/29/24 documented as of this encounter
--- OUTSIDE RECORDS SUMMARY | 2025-08-29 12:13 | XMS_ITS | Encounter Summary ---
Author Organization [employer] Address [address] [facility] 7t [place] [address] Care Team Providers Care Police Dispatcher Name Role Phone Anh Lujan MD Primary Care Provider +1- [phone] Marco Hyman MD Unavailable Jan Escalona MD Unavailable Reason for Visit * Reason Onset Date Comments Lab Orders 08/26/2025 Encounter Details Date Type Department Care Team (Late st Contact Info) Description 08/26/2025 Telephone [facility] [address] [place], [place] [phone] Anh Lujan MD [address] [place], [place] [phone] Lab Orders Social History Tobacco Use Types Packs/Day Years Used Date Smoking Tobacco: Every Day Cigarettes Passive Smoke Exposure: Current Smokeless Tobacco: Never Alcohol Use Standard Drinks/Week Comments Never 0 [...] Q2 Not on file 11/18/2024 Comments No Sex and Gender Information Value Date Recorded Sex Assigned at Female 09/16/2022 10:18 AM EDT Legal Sex Female 10:18 AM EDT Gender Identity Female 09/16/2022 10:18 AM EDT Sexual Orientation Choose not to disclose 2021 10:18 AM EDT documented as of this encounter Miscellaneous Notes * Telephone Encounter - Ammy Bone RN - 08/26/2025 1:38 PM EDT TC placed back to the pt with [facility] tugboat dispatcher #[id number] in regard to the request for labs to be ordered based on lab requisition scanned into the pt chart this morning. The lab order states it is from [facility] in [place] and the pt states that she was referred here from the emergency room. The pt could no provide mor details and RN does not see an ED visit in pt chart but the pt states that the labs ordered to [facility] through [facility] will not be covered by her insurance. The pt was hopingPCP could order them and have it done through [facility] in order for insurance to cover. * Telephone Encounter - Shweta Hall - 08/26/2025 12:45 PM EDT Patient walked in requesting labs from [facility]. Per Patient she received labs from different provider but the location the sent her to do the labs her insurance will not cover. Patient wants to know if Patient can order them instead so her insurance can cover. Patient provided lab orders from other provider (Scanned in Patient media). documented in this encounter Plan of Treatment Upcoming Encounters Date Type Department Care Team (Late st Contact Info) Description 10/06/2025 9:15 AM EST Office Visit [facility] [address] [place] [address] Anh Lujan MD [address] [place] [address] documented as of this encounter Visit Diagnoses Not on filedocumented in this encounter Additional Health Concerns Assessment Noted Time PHQ-9 Depression Total Score: 5 11/29/19 10:36 AM EST documented as of this encounter Care Teams Police Dispatcher Relationship Specialty Start Date End Date Anh Lujan MD [address] [place] [address] PCP - General Family Medicine 11/17/18 Marco Hyman MD [address] [place] [address] Rheumatology 11/15/24 Jan Escalona MD [address] [place] [address] Pain Medicine 11/15/24 Jorge L Jones MD [address] [place] [address] Dr [address] [place] [address] Neurology 11/15/[address] [address] Psychiatry 11/15/24 Dr. Marino Nguyen MD [facility] [address] [place], [place] [phone] Gastroenterology 11/29/24 documented as of this encounter
--- OUTSIDE RECORDS SUMMARY | 2025-08-29 12:13 | XMS_ITS | Encounter Summary ---
Author Organization [facility] Address [address] [facility] 7t [place] [address] Care Team Providers Care Brickmason Name Role Phone Anh Lujan MD Primary Care Provider [phone]- [phone] Marco Hyman MD Unavailable Jan Escalona MD Unavailable Encounter Details Date Type Department Care Team (Late st Contact Info) Description 03/11/2023 Abstract [facility] MEDICINE [address] [place], [place] [phone] Anh Lujan MD [address] [place], [place] [phone] Social History Tobacco Use Types Packs/Day Years [...] Description 10/06/2025 9:15 AM EST Office Visit [facility] [address] [place] [address] Anh Lujan MD [address] [place] [address] documented as of this encounter Visit Diagnoses Not on filedocumented in this encounter Additional Health Concerns Assessment Noted Time PHQ-9 Depression Total Score: 0 02/22/20 23 9:38 AM EDT documented as of this encounter Care Teams Brickmason Relationship Specialty Start Date End Date Anh Lujan MD [address] [place] [address] PCP - General Family Medicine 11/17/18 Marco Hyman MD [address] [place] [address] Rheumatology 11/15/24 Jan Escalona MD [address] [place] [address] Pain Medicine 11/15/24 Jorge L Jones MD [address] [place] [address] Dr [address] [place] [address] Neurology 11/15/[address] [address] Psychiatry 11/15/24 Dr. Marino Nguyen MD [address] [phone] Gastroenterology 11/29/24 documented as of this encounter
--- OUTSIDE RECORDS SUMMARY | 2025-08-29 12:13 | XMS_ITS | Encounter Summary ---
Author Organization [facility] [facility] Address [address] [facility] 7t [place] [address] Care Team Providers Care Primary Counselor Name Role Phone Anh Lujan MD Primary Care Provider +- [phone] Marco Hyman MD Unavailable Jan Escalona MD Unavailable Encounter Details Date Type Department Care Team (Late st Contact Info) Description 01/14/2023 Abstract [facility] MEDICINE [address] [place] [address] [phone] Anh Lujan MD [address] [place] [address] [phone] Social History Tobacco Use Types Packs/Day Years [...] Description 10/06/2025 9:15 AM EST Office Visit [facility] [address] [place] [address] [phone] Anh Lujan MD [address] [place] [address] [phone] documented as of this encounter Procedures Procedure [...] on filedocumented in this encounter Care Teams Primary Counselor Relationship Specialty Start Date End Date Anh Lujan MD [address] [place] [phone] PCP - General Family Medicine 11/17/18 Marco Hyman MD [address] [place] [address] Rheumatology 11/15/24 Jan Escalona MD [address] [place] [address] Pain Medicine 11/15/24 Jorge L Jones MD [address] [place] [address] Dr [address] [place] [address] Neurology 11/15/[address] [address] Psychiatry 11/15/24 Dr. Marino Nguyne MD [address] [address] Gastroenterology 11/29/24 documented as of this encounter
--- OUTSIDE RECORDS SUMMARY | 2025-08-29 12:13 | XMS_ITS | Encounter Summary ---
Author Organization [employer] Address [address] [facility] 7t [place] [address] Care Team Providers Care Classroom Coordinator Name Role Phone Anh Lujan MD Primary Care Provider +1- [phone] Marco Hyman MD Unavailable Jan Escalona MD Unavailable Reason for Visit * Reason Comments Med Refill Encounter Details Date Type Department Care Team (Late st Contact Info) Description 06/03/2024 Refill [facility] [address] [place], [place] [phone] Taylor Prakash MD [address] [place], [place] [phone] Vitamin deficiency Social History Tobacco Use Types [...] 9:15 AM EST Office Visit [facility] [address] [place] [phone] Anh Lujan MD [address] [place] [phone] documented as of this encounter Visit Diagnoses Diagnosis Vitamin deficiency Unspecified vitamin deficiency documented in this encounter Additional Health Concerns Assessment Noted Time PHQ-9 Depression Total Score: 0 02/22/20 23 9:38 AM EDT documented as of this encounter Care Teams Classroom Coordinator Relationship Specialty Start Date End Date Anh Lujan MD [address] [place] [phone] PCP - General Family Medicine 11/17/18 Marco Hyman MD [address] [place] [address] Rheumatology 11/15/24 Jan Escalona MD [address] [place] [address] Pain Medicine 11/15/24 Jorge L Jones MD [address] [place] [address] Dr [address] [place] [address] Neurology 11/15/[address] [address] Psychiatry 11/15/24 Dr. Marino Nguyen MD [address] [address] Gastroenterology 11/29/24 documented as of this encounter
--- OUTSIDE RECORDS SUMMARY | 2025-08-29 12:13 | XMS_ITS | Encounter Summary ---
Author Organization [employer] Address [address] [place] [address] Care Team Providers Care [employer] Name Role Phone Anh Lujan MD Primary Care Provider [phone]- [phone] Marco Hyman MD Unavailable Jan Escalona MD Unavailable Encounter Details Date Type Department Care Team (Late st Contact Info) Description 08/29/2025 Telephone [facility] [address] [place], [place] [phone] Anh Lujan MD [address] [place], [place] [phone] Social History Tobacco Use Types Packs/Day Years [...] encounter Miscellaneous Notes * Telephone Encounter - Anh Lujan MD - 08/29/2025 9:16 AM EDT See telephone call 08/29/25 documented in this encounter Plan of Treatment Upcoming Encounters Date Type Department Care Team (Late st Contact Info) Description 10/06/2025 9:15 AM EST Office Visit [facility] [address] [place] [id number] Anh Lujan MD [address] [place] [address] Scheduled Orders Name Type Priority Associated Diagnoses Orde r Schedule Estradiol Lab Routine Amenorrhea Expected: 08/29/2025, Expires: 08/29/2026 FSH Lab Routine Amenorrhea Expected: 08/29/2025, Expires: 08/29/2026 LH Lab Routine Amenorrhea Expected: 08/29/2025 (Approximate), Expires: 08/29/2026 Progesterone Lab Routine Amenorrhea Expected: 08/29/2025 (Approximate), Expires: 08/29/2026 documented as of this encounter Visit Diagnoses Diagnosis Amenorrhea- Primary Absence of menstruation Positive test examination or test, positive result documented in this encounter Additional Health Concerns Assessment Noted Time PHQ-9 Depression Total Score: 5 11/29/19 25 10:36 AM EST documented as of this encounter Care Teams [employer] Relationship Specialty Start Date End Date Anh Lujan MD [address] [place] [id number] PCP - General Family Medicine 11/17/18 Marco Hyman MD [address] [place] [address] Rheumatology 11/15/24 Jan Escalona MD [address] [place] [address] Pain Medicine 11/15/24 Jorge L Jones MD [address] [place] [address] Dr [address] [place] [address] Neurology 11/15/[address] [address] Psychiatry 11/15/24 Dr. Marino Nguyen MD [address] [address] Gastroenterology 11/29/24 documented as of this encounter
[2025-08-30 03:13] LABS: Follicle Stimulating Hormone 63.6 mIU/mL; Progesterone Immunoassay <0.5 ng/mL
[2025-09-03 04:28] LABS: Estradiol Ultra Sensitive <2 pg/mL
== END 2025-08-29 12:10 | disposition home or self-care (01) ==
LOC: HO.HHCL 12:09
PROVIDERS: PCP Family Medicine; Visit Provider Family Medicine
DX: N91.2 Amenorrhea, unspecified (principal)
CPT/HCPCS: 36415; 82670; 83001; 83002; 84144

== ENCOUNTER 2025-10-20 11:32 | Outpatient (REF) | payer MEDICARE, MEDICAID, SELFPAY ==
--- NOTE | ~2025-10-20 | US_ITS ---
CLINICAL HISTORY: LLQ pain Ultrasound of the female pelvis Comparison: US/MD/SR - US PELVIS TRANSABDOMINAL AND TRANSVAGINAL - 03/20/23 11:25 EDT Technique: Grayscale ultrasound with assistance of color Doppler. Transabdominal scanning performed for overall anatomy. Transvaginal scanning performed for better anatomic delineation. Findings: Anteverted uterus measures 6.1 x 3.1 x 4.8 cm. Unremarkable myometrium, no mass is seen. Punctate calcific focus in the fundal myometrium, of doubtful clinical significance. Endometrium is not well seen, grossly unremarkable, 6 mm in thickness. Normal cervix. Normal right ovary, 2.7 x 1.3 x 1.6 cm. No abnormal vascular flow. Normal left ovary, 3.1 x 1.0 x 1.3 cm. No abnormal vascular flow. No free fluid. Impression: Unremarkable exam. No sonographic finding to account for left lower quadrant pain. This document has been electronically signed by: Anat Espinal MD on 10/20/2025 15:48:19
== END 2025-10-20 11:33 | disposition home or self-care (01) ==
LOC: HO.US 11:32
PROVIDERS: PCP Family Medicine; Visit Provider Advanced Practice Midwife
DX: R10.32 Left lower quadrant pain (principal)
CPT/HCPCS: 76830; 76856

== ENCOUNTER → 2025-10-20 11:50 | Outpatient (BNV) | payer MEDICARE, MEDICAID, SELFPAY | PROVIDERS: PCP Family Medicine; Visit Provider Radiology Diagnostic Radiology | DX: R10.32 Left lower quadrant pain (principal) | CPT/HCPCS: 76830; 76856 ==